=== PATIENT | female | born 2000 | race Caucasian/White ===

== ENCOUNTER 2023-06-28 18:49 | Emergency (ER) | payer MEDICAID, SELFPAY ==
[2023-06-28 18:51] VITALS: BP 137/76; PULSE 88; TEMP 36.9; O2SAT 99; BMI 38.7
--- NOTE | 2023-06-28 18:57 | ED_ITS ---
HPI - Female Genitourinary General Chief complaint: Urogenital-Female Stated complaint: green vaginal discharge Time Seen by Provider: 06/28/23 18:49 Source: patient Mode of arrival: walk-in History of Present Illness HPI Narrative: Patient is a 22-year-old female who presents to the emergency department for 4- day history of itchy green vaginal discharge. She denies fevers, vomiting, abdominal pain or flank pain. No urinary symptoms. She has had no vaginal bleeding. She is concerned that her boyfriend may have cheated on her and given her an STI. She has not had any wounds or lesions. She is not concerned for . Related Data Previous Rx's ?Medication ?Instructions ?Recorded doxycycline hyclate 100 mg tablet 100 mg PO BID 7 days #14 tabs 06/28/23 metronidazole 500 mg tablet 500 mg PO Q12H 7 days #14 tabs 06/28/23 ondansetron 4 mg disintegrating 4 mg PO Q6H PRN nausea and 06/28/23 tablet vomiting #12 tabs Allergies Allergy/AdvReac Type Severity Reaction Status Date / Time No Known Drug Allergies Allergy Verified 06/28/23 18:54 Review of Systems ROS Constitutional Denies: fever or chills Ears, nose, mouth, and throat Denies: throat pain or nasal congestion Respiratory Denies: shortness of breath Gastrointestinal Denies: abdominal pain, nausea or vomiting Genitourinary Reports: vaginal discharge; Denies: pelvic pain Integumentary/Breast Denies: rash Hematologic/Lymphatic Denies: easy bruising or easy bleeding Exam Narrative Exam Narrative: Gen.: Awake, alert, in no distress Head: Normocephalic, atraumatic ENT: Moist mucous membranes Respiratory: No respiratory distress Gastrointestinal: Abdomen is soft, nondistended and nontender to palpation : Moderate yellow/light green discharge at the cervix with no cervical motion tenderness, speculum exam performed with Carmen Valdez RN at bedside throughout the duration of the exam. No vesicles, warts or other lesions appreciated of the vagina Extremities: Moves extremities equally Psych: Normal mood and affect Neuro: No focal neuro deficit Skin: Warm, dry, intact Constitutional Vital Signs, click to edit/add: Last Vital Signs Temp 98.5 F 06/28/23 18:51 Pulse 88 06/28/23 18:51 Resp 18 06/28/23 18:51 BP 137/76 06/28/23 18:51 Pulse Ox 99 06/28/23 18:51 O2 Del Method Room Air 06/28/23 18:51 Course Vital Signs Vital signs: Vital Signs Temperature 98.5 F 06/28/23 18:51 Pulse Rate 88 06/28/23 18:51 Respiratory Rate 18 06/28/23 18:51 Blood Pressure 137/76 06/28/23 18:51 Pulse Oximetry 99 06/28/23 18:51 Oxygen Delivery Method Room Air 06/28/23 18:51 Temperature 98.5 F 06/28/23 18:51 Pulse Rate 88 06/28/23 18:51 Respiratory Rate 18 06/28/23 18:51 Blood Pressure 137/76 06/28/23 18:51 Pulse Oximetry 99 06/28/23 18:51 Oxygen Delivery Method Room Air 06/28/23 18:51 MDM - Female Genitourinary MDM Narrative Medical decision making narrative: Wet prep with trichomonas as well as pending GC and Chlamydia cultures. Patient would like to be empirically treated for STI and will be treated for trichomonas. She is given Rocephin in the emergency department and discharged home on 7 days of Flagyl per updated STI treatment guidelines as well as 7 days of doxycycline. Zofran given as needed. Patient encouraged not to drink alcohol and be fully treated for STI before she engages in sexual contact. We will contact with a positive GC/chlamydia result. Follow-up with M[employer]IC[employer] LINE OPERATOR and return to the ER if symptoms change or worsen. Medical Records Attestation: I reviewed the patient's medical records. Lab Data Attestation: I reviewed the patient's lab results. Labs: Lab Results 06/28/23 06/28/23 Range/Units 19:00 19:05 Urine Color Lt. yellow (YELLOW) Urine Clarity Clear (CLEAR) Urine pH 7.0 (5.0-9.0) Ur Specific [place] 1.020 (1.005-1.025) Urine Protein Negative (NEG/TRACE) mg/dL Urine Glucose (UA) Negative (NEGATIVE) mg/dL Urine Ketones Negative (NEGATIVE) mg/dL Urine Occult Blood Trace-i (NEGATIVE) Urine Nitrite Negative (NEGATIVE) Urine Bilirubin Negative (NEGATIVE) Urine Urobilinogen 1.0 (0.2-1.0) EU/dL Ur Leukocyte Esterase Small A (NEGATIVE) Urine RBC 5-10 A (0-2) #/HPF Urine WBC 5-10 A (NONE SEEN) #/HPF Ur Squamous Epith Cells Many A (NONE/RARE) #/LPF Urine Crystals None seen (None Seen) #/HPF Urine Bacteria Trace A (NONE SEEN) #/HPF Urine Casts None seen (NONE SEEN) #/LPF Urine Mucus None seen (NONE SEEN) Urine Trichomonas Seen A (NONE SEEN) Urine Yeast Seen A (NONE SEEN) Ur Culture Indicated? Yes Urine HCG, Qual Negative (NEGATIVE) C.trachomatis DNA (LOCO) Negative (Negative) N.gonorrhoeae DNA (LOCO) Negative (Negative) Discharge Plan Discharge Stand Alone Forms: Portal Instructions Chief Complaint: Urogenital-Female Clinical Impression: Possible exposure to STI, Trichomonas vaginitis, Cervicitis Patient Disposition: Home, Self-Care Time of Disposition Decision: 19:29 Condition: Good Prescriptions / Home Meds: New metronidazole 500 mg tablet 500 mg PO Q12H 7 Days Qty: 14 0RF ondansetron 4 mg tablet,disintegrating 4 mg PO Q6H PRN (Reason: nausea and vomiting) Qty: 12 0RF doxycycline hyclate 100 mg tablet 100 mg PO BID 7 Days Qty: 14 0RF Print Language: Korean Instructions: Sexually Transmitted Diseases (ED), Trichomoniasis (ED) Referrals: Leoncio Shine DO [Physician] - 1 week Shaikh Hernandez MD [Primary Care Provider] - 1 week Discharge Date/Time: 06/28/23 19:47
[2023-06-28 19:15] LABS: Bilirubin Urine NEGATIVE (NEGATIVE); Blood Urine TRACE-I (NEGATIVE); Clarity Urine CLEAR (CLEAR); Color Urine LT. YELLOW (YELLOW); Glucose Urine UA NEGATIVE (NEGATIVE); Ketones Urine NEGATIVE (NEGATIVE); Leukocyte Esterase Urine SMALL (NEGATIVE); Nitrite Urine NEGATIVE (NEGATIVE); Protein Urine NEGATIVE (NEG/TRACE)
[2023-06-28 19:18] LABS: Urine Microscopic Indicated YES
[2023-06-28 19:22] LABS: HCG Qualitative Urine* NEGATIVE (NEGATIVE)
[2023-06-28] MEDS: CEFTRIAXONE 500 MG, LIDOCAINE HCL/PF 1 ML IM (19:26)
[2023-06-28 19:30] LABS: Bacteria Urine TRACE #/HPF (NONE SEEN); Cast Seen? NONE SEEN #/LPF (NONE SEEN); Crystals Seen? None Seen #/HPF (None Seen); Mucus Urine NONE SEEN (NONE SEEN); Squamous Epithelial Cell Urine MANY #/LPF (NONE/RARE); Trichomonas Urine SEEN (NONE SEEN); Urine Culture Indicated YES
[2023-06-28] MEDS: FLUCONAZOLE 150 MG TABLET PO (19:41)
[2023-07-02 03:07] LABS: Neisseria gonorrhoeae, NAA Negative (Negative)
== END 2023-06-28 19:47 | disposition home or self-care (01) ==
PROVIDERS: Physician Assistant; Emergency Provider Internal Medicine; PCP Internal Medicine
DX: N72 Inflammatory disease of cervix uteri (principal); A59.01 Trichomonal vulvovaginitis; Z20.2 Contact with and (suspected) exposure to infections with a predominantly sexual mode of transmission
CPT/HCPCS: 81001; 84703; 87086; 87210; 87491; 87591; 96372; 99285

== ENCOUNTER 2023-09-07 11:20 | Emergency (ER) | payer MEDICAID, SELFPAY ==
[2023-09-07 11:26] VITALS: BP 123/76; PULSE 88; TEMP 36.7; O2SAT 98; BMI 39.1
--- NOTE | 2023-09-07 12:11 | ED.FEMALEGU1 ---
HPI - Female Genitourinary General Chief complaint: Urogenital-Female Stated complaint: PAIN WHEN URINATING Time Seen by Provider: 09/07/23 12:04 Source: patient Mode of arrival: walk-in Limitations: no limitations History of Present Illness HPI Narrative: This patient is here complaining of urinary discomfort. She was recently seen here and had a pelvic examination. At that time her endocervix showed some scant amount of green endocervical discharge and she was treated for trichomoniasis. She was also empirically treated with Rocephin and doxycycline empirically because some risk of STD exposure. At the time of her ER visit her GC and Chlamydia smears were negative. A urine culture done on that day is also negative for UTI, it shows mixed genital reji. She states that she did take her antibiotics but now has this urinary symptomatology. Her pelvic exam at that time showed no cervical motion tenderness or any other abnormalities. Related Data Allergies Allergy/AdvReac Type Severity Reaction Status Date / Time No Known Drug Allergies Allergy Verified 06/28/23 18:54 Exam Narrative Exam Narrative: Awake alert pleasant no distress. History was reviewed and her culture results noted as above. I did want to do an external genital examination make sure there is no indication of herpes and she is consented to that. With the nurse present at the bedside the external genitalia were examined and there is no indication of any type of herpetic lesions or other abnormalities. Her urinalysis today shows greater than 100 WBCs and she has urinary symptomatology so we will do a culture that urine and start her on Cipro. She was told to call us in 48 hours. If by chance there was not a UTI today, which is highly unlikely, she is to follow-up with her processing engineer. Constitutional Vital Signs, click to edit/add: Last Vital Signs Temp 98.0 F 09/07/23 11:26 Pulse 88 09/07/23 11:26 Resp 18 09/07/23 11:26 BP 123/76 09/07/23 11:26 Pulse Ox 98 09/07/23 11:26 O2 Del Method Room Air 09/07/23 11:26 Course Vital Signs Vital signs: Vital Signs Temperature 98.0 F 09/07/23 11:26 Pulse Rate 88 09/07/23 11:26 Respiratory Rate 18 09/07/23 11:26 Blood Pressure 123/76 09/07/23 11:26 Pulse Oximetry 98 09/07/23 11:26 Oxygen Delivery Method Room Air 09/07/23 11:26 Temperature 98.0 F 09/07/23 11:26 Pulse Rate 88 09/07/23 11:26 Respiratory Rate 18 09/07/23 11:26 Blood Pressure 123/76 09/07/23 11:26 Pulse Oximetry 98 09/07/23 11:26 Oxygen Delivery Method Room Air 09/07/23 11:26 MDM - Female Genitourinary Lab Data Labs: Lab Results 09/07/23 Range/Units 11:29 Urine Color Lt. yellow (YELLOW) Urine Clarity Clear (CLEAR) Urine pH 6.0 (5.0-9.0) Ur Specific [place] 1.020 (1.005-1.025) Urine Protein >=300 A (NEG/TRACE) mg/dL Urine Glucose (UA) Negative (NEGATIVE) mg/dL Urine Ketones Negative (NEGATIVE) mg/dL Urine Occult Blood Large A (NEGATIVE) Urine Nitrite Positive A (NEGATIVE) Urine Bilirubin Negative (NEGATIVE) Urine Urobilinogen 0.2 (0.2-1.0) EU/dL Ur Leukocyte Esterase Moderate A (NEGATIVE) Discharge Plan Discharge Stand Alone Forms: Portal Instructions Chief Complaint: Urogenital-Female Clinical Impression: UTI (urinary tract infection) Patient Disposition: Home, Self-Care Time of Disposition Decision: 12:58 Print Language: Azerbaijani Additional Instructions: Cipro/drink lots of extra FLOT fluids. Follow-up with a processing engineer if symptoms do not improve Referrals: Shaikh Hernandez MD [Primary Care Provider] - 1 week
[2023-09-07 12:31] LABS: Bilirubin Urine NEGATIVE (NEGATIVE); Blood Urine LARGE (NEGATIVE); Clarity Urine CLEAR (CLEAR); Color Urine LT. YELLOW (YELLOW); Glucose Urine UA NEGATIVE (NEGATIVE); Ketones Urine NEGATIVE (NEGATIVE); Leukocyte Esterase Urine MODERATE (NEGATIVE); Nitrite Urine POSITIVE (NEGATIVE); Protein Urine >=300 mg/dL (NEG/TRACE); Urobilinogen Urine 0.2 EU/dL (0.2-1.0)
[2023-09-07 12:41] LABS: Urine Microscopic Indicated YES
[2023-09-07 12:46] LABS: WBC Urine >100 #/HPF (NONE SEEN)
[2023-09-07 12:47] LABS: Bacteria Urine SMALL #/HPF (NONE SEEN); Cast Seen? NONE SEEN #/LPF (NONE SEEN); Crystals Seen? None Seen #/HPF (None Seen); Mucus Urine NONE SEEN (NONE SEEN); Squamous Epithelial Cell Urine FEW #/LPF (NONE/RARE)
[2023-09-07 13:06] VITALS: BP 107/76; PULSE 74; O2SAT 98
== END 2023-09-07 13:05 | disposition home or self-care (01) ==
PROVIDERS: Emergency Provider Emergency Medicine Emergency Medical Services; PCP Internal Medicine
DX: N39.0 Urinary tract infection, site not specified (principal)
CPT/HCPCS: 81001; 99283

== ENCOUNTER 2023-09-09 00:36 | Emergency (ER) | payer MEDICAID, SELFPAY ==
[2023-09-09 00:40] VITALS: BP 125/74; PULSE 123; TEMP 37.1; O2SAT 95; BMI 35.4
--- NOTE | 2023-09-09 01:05 | ED.GENADUL1 ---
HPI HPI - General Adult General Chief complaint: Fever Stated complaint: fever Time Seen by Provider: 09/09/23 00:56 Source: patient Mode of arrival: walk-in Limitations: no limitations History of Present Illness HPI narrative: patient states she was seen yesterday and diagnosed with UTI. Prescribed antibiotic but never picked it up. Now returns complaining of fever and vomiting. Her sides feel sore Related Data Allergies Allergy/AdvReac Type Severity Reaction Status Date / Time No Known Drug Allergies Allergy Verified 09/09/23 00:46 Opioid HPI Opioid Management Most Recent Opioid Data: Last ED Pain Assessment 09/07/23 11:46 Review of Systems ROS Status of ROS 10 or more systems reviewed and unremarkable except as noted in history and below Exam Constitutional Vital Signs, click to edit/add: Last Vital Signs Temp 98.8 F 09/09/23 00:40 Pulse 113 H 09/09/23 02:26 Resp 16 09/09/23 02:26 BP 113/66 09/09/23 02:26 Pulse Ox 97 09/09/23 02:26 O2 Del Method Room Air 09/09/23 02:26 Common normals: no apparent distress, average body habitus, oriented x3, no limitations, healthy appearing, alert and well nourished [facility] Common normals: normocephalic and head/scalp atraumatic Eye Common normals: EOMs intact bilaterally and conjunctivae normal Respiratory Common normals: normal respiratory effort, no retractions, no use of accessory muscles and clear to auscultation bilaterally Cardio Common normals: regular rate, regular rhythm, S1 normal heart sound and S2 normal heart sound GI Other: bilat CVA mild tenderness Extremity Common normals: normal to inspection and full ROM Neuro Common normals: oriented x3, CN's II-XII intact bilaterally, moves all extremities and no focal motor deficits Psych Appearance: grossly normal Course Vital Signs Vital signs: Vital Signs Temperature 98.8 F 09/09/23 00:40 Pulse Rate 123 H 09/09/23 00:40 Respiratory Rate 16 09/09/23 00:40 Blood Pressure 125/74 09/09/23 00:40 Pulse Oximetry 95 09/09/23 00:40 Oxygen Delivery Method Room Air 09/09/23 00:40 Temperature 98.8 F 09/09/23 00:40 Pulse Rate 113 H 09/09/23 02:26 Respiratory Rate 16 09/09/23 02:26 Blood Pressure 113/66 09/09/23 02:26 Pulse Oximetry 97 09/09/23 02:26 Oxygen Delivery Method Room Air 09/09/23 02:26 Medical Decision Making MDM Narrative Medical decision making narrative: patient presents with untreated UTI. Has antibiotics at pharmacy but has not picked them up. Here with flank pain. States fever at home but afebrile here. Nausea here that resolved after one dose of zofran. Patient hydrated and given dose of Rocephin and then discharged home Lab Data Labs: Lab Results 09/09/23 Range/Units 01:14 WBC 14.4 H (4.0-11.0) 10^3/uL RBC 4.03 L (4.20-5.40) 10^6/uL Hgb 12.5 (12.0-16.0) g/dL Hct 36.6 (36.0-48.0) % MCV 90.8 (81.0-99.0) fL MCH 31.0 (26.7-34.0) pg MCHC 34.2 (29.9-35.2) g/dL RDW 12.7 (11.0-15.0) % Plt Count 281 (150-450) 10^3/uL MPV 9.6 (9.5-13.5) fL Neut % (Auto) 87.6 H (43.0-75.0) % Lymph % (Auto) 5.2 L (20.5-60.0) % [place] % (Auto) 6.3 (1.7-12.0) % Eos % (Auto) 0.0 L (0.9-7.0) % Baso % (Auto) 0.1 L (0.2-2.0) % Neut # (Auto) 12.6 H (1.4-6.5) 10^3/uL Lymph # (Auto) 0.7 L (1.2-3.8) 10^3/uL [place] # (Auto) 0.9 H (0.3-0.8) 10^3/uL Eos # (Auto) 0.0 (0.0-0.7) 10^3/uL Baso # (Auto) 0.0 (0.0-0.1) 10^3/uL Abs Immat Gran (auto) 0.11 H (0.00-0.03) 10^3/uL Imm/Tot Granulo (auto) 0.8 H (0.0-0.5) % Sodium 134 L (136-145) mmol/L Potassium 3.4 L (3.5-5.1) mmol/L Chloride 101 (98-107) mmol/L Carbon Dioxide 22.8 (21.0-32.0) mmol/L Anion Gap 13.6 BUN 9.0 (7.0-18.0) mg/dL Creatinine 1.08 H (0.55-1.02) mg/dL Est GFR ( Amer) >60 (>=60) Est GFR (Non-Af Amer) >60 (>=60) BUN/Creatinine Ratio 8.3 Glucose 148 H (74-106) mg/dL Lactate 1.8 (0.4-2.0) mmol/L Calcium 8.9 (8.5-10.1) mg/dL Discharge Plan Discharge Stand Alone Forms: Portal Instructions Chief Complaint: Fever Clinical Impression: UTI (urinary tract infection) Patient Disposition: Home, Self-Care Print Language: Maltese Instructions: Acute Urinary Retention in Women (ED) Additional Instructions: follow up with your doctor in 2-3 days for recheck Referrals: Shaikh Hernandez MD [Primary Care Provider] - 1 week
[2023-09-09 01:24] LABS: Basophils Percent Auto 0.1 % (0.2-2.0); Hematocrit 36.6 % (36.0-48.0); Hemoglobin 12.5 g/dL (12.0-16.0); Immature Granulocytes Abs Auto 0.11 10^3/uL (0.00-0.03); Immature Granulocytes Pct Auto 0.8 % (0.0-0.5); Lymphocytes Absolute Auto 0.7 10^3/uL (1.2-3.8); Lymphocytes Percent Auto 5.2 % (20.5-60.0); Mean Corpuscular HGB Conc 34.2 g/dL (29.9-35.2); Mean Corpuscular Volume 90.8 fL (81.0-99.0); Mean Platelet Volume 9.6 fL (9.5-13.5); Monocytes Absolute Auto 0.9 10^3/uL (0.3-0.8); Monocytes Percent Auto 6.3 % (1.7-12.0); Neutrophils Absolute Auto 12.6 10^3/uL (1.4-6.5); Neutrophils Percent Auto 87.6 % (43.0-75.0); Platelet Count 281 10^3/uL (150-450); Red Blood Count 4.03 10^6/uL (4.20-5.40); Red Cell Distribution Width 12.7 % (11.0-15.0); White Blood Count 14.4 10^3/uL (4.0-11.0)
[2023-09-09] MEDS: 0.9 % SODIUM CHLORIDE 1,000 ML 999 ML IV (01:31)
[2023-09-09] MEDS: CEFTRIAXONE 1,000 MG in 0.9 % SODIUM CHLORIDE 50 ML 100 MG IV (01:31)
[2023-09-09 01:34] LABS: Anion Gap 13.6; BUN Creatinine Ratio 8.3; Calcium 8.9 mg/dL (8.5-10.1); Carbon Dioxide 22.8 mmol/L (21.0-32.0); Chloride 101 mmol/L (98-107); Estimated GFR (African America >60 (>=60); Estimated GFR (Non-African Ame >60 (>=60); Glucose 148 mg/dL (74-106); Potassium 3.4 mmol/L (3.5-5.1); Sodium 134 mmol/L (136-145)
[2023-09-09 01:43] LABS: Lactate/Lactic Acid 1.8 mmol/L (0.4-2.0)
[2023-09-09] MEDS: ONDANSETRON PF 4 MG/2 ML VIAL IV (01:44)
[2023-09-09 02:26] VITALS: BP 113/66; PULSE 113; O2SAT 97
== END 2023-09-09 02:42 | disposition home or self-care (01) ==
PROVIDERS: Emergency Provider Internal Medicine; PCP Internal Medicine
DX: N39.0 Urinary tract infection, site not specified (principal)
CPT/HCPCS: 36415; 80048; 83605; 85025; 96365; 96375; 99284; J0696; J2405

== ENCOUNTER 2024-04-05 20:22 | Emergency (ER) | payer MEDICAID, SELFPAY ==
[2024-04-05 20:36] VITALS: BP 137/93; PULSE 86; TEMP 37.1; O2SAT 97; BMI 34.5
[2024-04-05] MEDS: HYDROCODONE/ACET 5-325 MG TABLET 1 TAB PO (21:34)
[2024-04-05] MEDS: AMOXICILLIN/POT CLAV 875-125 MG TABLET 1 TAB PO (21:39)
--- NOTE | 2024-04-06 01:18 | ED_ITS ---
HPI - Dental/Oral General Chief complaint: Dental/Oral Stated complaint: MOUTH PAIN Time Seen by Provider: 04/05/24 21:12 Source: patient Mode of arrival: walk-in Limitations: no limitations History of Present Illness HPI Narrative: The patient is an otherwise healthy 23-year-old female who presents to the emergency department for dental pain. The patient reported that one of her front teeth is extremely painful. Pain is an 11 out of 10. Patient stated that a filling fell out of that tooth March 31. She apparently had a prior dental appointment scheduled and was able to be seen the next day. They informed her that they were unable to put a filling back in that tooth because the tooth was loose. On April 02, the tooth broke off. The patient stated she tried to call her dentist on and Saturday due to the pain and her concern to need an antibiotic. She states that she is getting some bleeding and some clots from the site still. Patient is not taking anything for the pain. The patient does smoke. Unknown what makes the pain worse. Nothing makes it better. She does not have any trouble breathing or swallowing. There is no trouble opening her mouth. She can stick her tongue out. She does not have any neck pain or stiffness. There is no pain under the tongue. She denies any fever or chills. MD Complaint: Reports tooth pain Location: Tooth # (7) Teeth map: 2 1. Severity: severe Treatment prior to arrival: none Related Data Previous Rx's ?Medication ?Instructions ?Recorded amoxicillin 875 mg-potassium 1 tab PO BID #14 tabs 04/05/24 clavulanate 125 mg tablet hydrocodone 5 mg-acetaminophen 325 1 tab PO Q8H #9 tabs 04/05/24 mg tablet Allergies Allergy/AdvReac Type Severity Reaction Status Date / Time No Known Drug Allergies Allergy Verified 04/05/24 20:43 Review of Systems 2 ROS0 Status of ROS 10 or more systems reviewed and unremark able except as noted in history and below [facility] Social History Little interest or pleasure in doing things: not at all Feeling down, depressed, or hopeless: not at all Exam Narrative Exam Narrative: Prior to examining the patient, I have washed with hospital approved and provided Antiseptic Hand Street Light Repairer and have also applied gloves.? Prior to touching the patient, I asked for consent to examine the patient.? General: Alert and oriented, well nourished, mild distress. Eye: PERRL, EOMI, normal conjunctiva. 4 mm and reactive HENT: Normocephalic, normal hearing, moist oral mucosa, no scleral icterus, tooth #7 has hyperemic gingival tissue. Tooth #7 is decayed to the gingival line. There is no evidence of active bleeding at this time. Neck: Supple, non-tender, no lymphadenopathy. Musculoskeletal: Normal range of motion and strength, no tenderness or swelling. Skin: Skin is warm, dry and pink, no rashes or lesions. Neurologic: Awake, alert, and oriented X3, CN II-XII intact. Psychiatric: Cooperative, appropriate mood and affect.? Following the conclusion of the examination, I have washed my hands thoroughly after removing examination gloves. Constitutional Vital Signs, click to edit/add: Last Vital Signs Temp 98.8 F 04/05/24 20:36 Pulse 86 04/05/24 20:36 Resp 14 04/05/24 20:36 BP 137/93 H 04/05/24 20:36 Pulse Ox 97 04/05/24 20:36 O2 Del Method Room Air 04/05/24 20:36 Course Course Hospital Course: Patient is a 23-year-old healthy female who presented to the emergency department through triage by her grandma who had driven her. Patient has evidence of dental caries and likely dental abscess given her presentation. Patient is going to be started on antibiotic therapy. We are going to give the patient Augmentin 875 mg twice daily. Patient will also be provided a prescription for [place] and instructed to also take ibuprofen as an outpatient. She should follow-up with her dentist soon as possible. I did advise the patient to stop smoking as that may inhibit her from getting surgical care if that is what is deemed to be necessary. Vital Signs Vital signs: Vital Signs Temperature 98.8 F 04/05/24 20:36 Pulse Rate 86 04/05/24 20:36 Respiratory Rate 14 04/05/24 20:36 Blood Pressure 137/93 H 04/05/24 20:36 Pulse Oximetry 97 04/05/24 20:36 Oxygen Delivery Method Room Air 04/05/24 20:36 Temperature 98.8 F 04/05/24 20:36 Pulse Rate 86 04/05/24 20:36 Respiratory Rate 14 04/05/24 20:36 Blood Pressure 137/93 H 04/05/24 20:36 Pulse Oximetry 97 04/05/24 20:36 Oxygen Delivery Method Room Air 04/05/24 20:36 MDM - Dental/Oral MDM Narrative Medical decision making narrative: In summary, the patient does not have any evidence of Cali's angina or acute necrotizing ulcerative gingivitis. I believe that the patient should rinse or brush her teeth after every eating and smoking event. The patient should take antibiotics to completion. The patient should be aggressive with seeking dental care follow-up. Differential Diagnosis Differential diagnosis: Likely gingival abscess, dental caries, toothache, dental abscess and fracture of tooth Medical Records Attestation: I reviewed the patient's medical records. Smoking Cessation Patient Acknowledges Need for Cessation: Yes Discharge Plan Discharge Chief Complaint: Dental/Oral Clinical Impression: Dental abscess Patient Disposition: Home, Self-Care Time of Disposition Decision: 21:23 Condition: Good Mode of Transportation: EMS Prescriptions / Home Meds: New amoxicillin-pot clavulanate 875-125 mg tablet 1 tab PO BID Qty: 14 0RF hydrocodone-acetaminophen 5-325 mg tablet 1 tab PO Q8H Qty: 9 0RF Print Language: Cymro Instructions: Dental Abscess (ED) Additional Instructions: Please brush her teeth or rinse her mouth out each and every time you smoke a cigarette. Try to refrain from smoking if you can. Sometimes oral surgeons or dentist will not operate on you if you are smoking at the time of surgery. Increase your water and you may want to use probiotics since you are taking an antibiotic for your gut health. Referrals: Physician,Non-Staff, [Primary Care Provider] - 1 week Discharge Date/Time: 04/05/24 21:40
== END 2024-04-05 21:40 | disposition home or self-care (01) ==
PROVIDERS: Emergency Provider Emergency Medicine
DX: K04.7 Periapical abscess without sinus (principal); F17.200 Nicotine dependence, unspecified, uncomplicated
CPT/HCPCS: 99283

== ENCOUNTER 2024-06-08 14:25 | Emergency (ER) | payer SELFPAY ==
[2024-06-08 14:40] VITALS: BP 112/87; PULSE 92; TEMP 36.9; O2SAT 99; BMI 32.9
[2024-06-08] MEDS: BENZOCAINE 30 ML, lidocaine HCL 15 ML MM (15:00)
--- NOTE | 2024-06-08 15:07 | ED_ITS ---
HPI - Dental/Oral General Chief complaint: Dental/Oral Stated complaint: DENTAL PAIN Time Seen by Provider: 06/08/24 14:42 Source: patient Mode of arrival: walk-in History of Present Illness HPI Narrative: Patient is a 23-year-old female who presents to the emergency department for evaluation of pain in tooth #18. She states this has been present for the last 3 days although she was seen in this emergency department 2 months ago for pain in the same tooth. She states she was not able to have it pulled at the dentist office due to a lapse in insurance. There has been no drainage. No fevers or vomiting. She has no concern for . After my initial interview with the patient, her family member at bedside states that the patient would like to be checked for other things . She apparently had an STI exposure and would li ke to be tested for HIV and other STDs. She states she has bumps down there Related Data Previous Rx's ?Medication ?Instructions ?Recorded hydrocodone 5 mg-acetaminophen 325 1 tab PO Q8H #9 tabs 04/05/24 mg tablet amoxicillin 500 mg capsule 500 mg PO TID 10 days #30 caps 06/08/24 doxycycline hyclate 100 mg tablet 100 mg PO BID 10 days #20 tabs 06/08/24 ketorolac 10 mg tablet 10 mg PO TID PRN pain #10 tabs 06/08/24 ondansetron 4 mg disintegrating 4 mg PO Q6H PRN nausea and 06/08/24 tablet vomiting #12 tabs Allergies Allergy/AdvReac Type Severity Reaction Status Date / Time No Known Drug Allergies Allergy Verified 04/05/24 20:43 Review of Systems ROS Constitutional Denies: fever or chills Ears, nose, mouth, and throat Denies: throat pain or nasal congestion Cardiovascular Denies: chest pain Respiratory Denies: shortness of breath or cough Gastrointestinal Denies: nausea or vomiting Musculoskeletal Denies: back pain Integumentary/Breast Denies: rash Neurological Denies: numbness in extremities or weakness in extremities Hematologic/Lymphatic Denies: easy bruising or easy bleeding PFSH PFSH Social History Little interest or pleasure in doing things: not at all Feeling down, depressed, or hopeless: not at all Exam Narrative Exam Narrative: Gen.: Awake, alert, in no distress Head: Normocephalic, atraumatic ENT: Moist mucous membranes, erosion of tooth #18 to the gumline with no visible dental abscess. No trismus or drooling. No redness or swelling under the tongue. Clear speech. Respiratory: No respiratory distress, lungs clear bilaterally Cardio: Regular rate and rhythm Gastrointestinal: Abdomen is soft, nondistended and nontender to palpation Extremities: Moves extremities equally, no injuries noted Psych: Normal mood and affect Neuro: No focal neuro deficit Skin: Warm, dry, intact Constitutional Vital Signs, click to edit/add: Last Vital Signs Temp 98.5 F 06/08/24 14:40 Pulse 92 H 06/08/24 14:40 Resp 18 06/08/24 14:40 BP 112/87 06/08/24 14:40 Pulse Ox 99 06/08/24 14:40 Course Vital Signs Vital signs: Vital Signs Temperature 98.5 F 06/08/24 14:40 Pulse Rate 92 H 06/08/24 14:40 Respiratory Rate 18 06/08/24 14:40 Blood Pressure 112/87 06/08/24 14:40 Pulse Oximetry 99 06/08/24 14:40 Temperature 98.5 F 06/08/24 14:40 Pulse Rate 92 H 06/08/24 14:40 Respiratory Rate 18 06/08/24 14:40 Blood Pressure 112/87 06/08/24 14:40 Pulse Oximetry 99 06/08/24 14:40 MDM - Dental/Oral MDM Narrative Medical decision making narrative: Pelvic examination was performed with Kim Hsieh RN at bedside throughout the duration of the exam. External genitalia is unremarkable. Cervix with yellow mucopurulent drainage. Cultures obtained. Patient has no cervical motion tenderness. There are no external lesions, vesicles or rashes noted of the genitalia. Patient was medicated with dental analgesia in the ER. She was referred to the [facility] department for further STD testing as needed and was also given a referral for local gynecology as well as dental clinics. She was made aware of the limitation of the emergency department with testing of HIV, syphilis, hepatitis, etc. She requests treatment for STD exposure and was given Rocephin and a prescription for doxycycline. Amoxicillin given for coverage of the dental pain. Patient understands that she will need to finish both courses of antibiotics, she should eat with the antibiotics and Zofran was given for home in addition to Toradol for pain. Follow-up with dental, gynecology and return to the ER if symptoms change or worsen SUPERVISED APC VISIT, PHYSICIAN ATTESTATION: Based on the medical record the care appears appropriate. ? Medical Records Attestation: I reviewed the patient's medical records. Discharge Plan Discharge Chief Complaint: Dental/Oral Clinical Impression: Toothache, Dental caries, Screen for STD (sexually transmitted disease) Patient Disposition: Home, Self-Care Time of Disposition Decision: 15:35 Condition: Good Prescriptions / Home Meds: New amoxicillin 500 mg capsule 500 mg PO TID 10 Days Qty: 30 0RF ketorolac 10 mg tablet 10 mg PO TID PRN (Reason: pain) Qty: 10 0RF ondansetron 4 mg tablet,disintegrating 4 mg PO Q6H PRN (Reason: nausea and vomiting) Qty: 12 0RF doxycycline hyclate 100 mg tablet 100 mg PO BID 10 Days Qty: 20 0RF No Action hydrocodone-acetaminophen 5-325 mg tablet 1 tab PO Q8H Qty: 9 0RF Print Language: Slovenian Instructions: Safe Sex Practices (ED), Toothache (ED) Additional Instructions: [facility] Referrals: Physician,Non-Staff, MD [Primary Care Provider] - 1 week
[2024-06-08] MEDS: CEFTRIAXONE 500 MG VIAL IM (15:50)
[2024-06-08] MEDS: LIDOCAINE HCL 1% 100 MG/10 ML MDV INJ (15:51)
[2024-06-08 15:54] VITALS: BP 126/83; PULSE 88; O2SAT 99
[2024-06-10 04:07] LABS: Neisseria gonorrhoeae, NAA Negative (Negative)
== END 2024-06-08 15:54 | disposition home or self-care (01) ==
PROVIDERS: Physician Assistant; Emergency Provider Student in an Organized Health Care Education/Training Program
DX: K08.89 Other specified disorders of teeth and supporting structures (principal); K02.9 Dental caries, unspecified; Z11.3 Encounter for screening for infections with a predominantly sexual mode of transmission
CPT/HCPCS: 87210; 87491; 87591; 96372; 99285; J0696

== ENCOUNTER 2024-09-02 10:22 | Emergency (ER) | payer MEDICAID, SELFPAY ==
--- OUTSIDE RECORDS SUMMARY | 2021-12-26 09:30 | XMS_ITS | Continuity of Care Document ---
Author Organization [facility] Address [address] [place] [address] Phone Care Team Providers Care Technician Helper Instrument Name Role Phone Rafael Browne DDS Unavailable Unavail able Allergies, Adverse Reactions, Alerts Substance Reaction Status Criticality No Known Allergies Active No Inform ation Medications Medication Instructions Dosage Effective Dates (start - stop) Status Comments Lexapro 5 mg tablet take 1 tablet by ora l route every day 5 MG - Active PreviDent 5000 Plus 1.1 % cream Place pea size on wet toothbrush and brush thoroughly. Spit excess and do not rinse. Avoid eating anything for atleast 1 hour after use. Use before bed, can be use in the morning as well. - Active Procedures Procedure Date Extract; Erupted Th/exposted Rt 022 Extract; Erupted Th/exposted Rt 022 Oral Hygiene Instruction No Charge Intraoral-periapical 1st Film 1 Bitewig-single Film Limited Oral Eval Oral Hygiene Instruction OFFICE/OUTPATIENT VISIT, EST Bitewings Four Films Prophylaxis Adult Periodic Oral Eval Estab Patient 2019 [employer] [facility] Of [place] Dis Aug Oral Hygiene Instruction OFFICE/OUTPATIENT VISIT, EST PSYCH DIAGNOSTIC EVALUATION OFFICE/OUTPATIENT VISIT, EST IMMUNIZATION ADMIN, EACH ADD HPV 9 Valent IMMUNIZATION ADMIN, EACH ADD FLU VAC NO PRSV 4 NICOLE 3 YRS+ IMMUNIZATION ADMIN HEP A VACCINE, ADULT IM OFFICE/OUTPATIENT VISIT, NEW Intraoral-complete Series (bw) 19 Panoramic Film Comp Oral Eval New/estab Patient 2018 Oral Hygiene Instruction Advance Directives Directive Yes / No Effective Date File Name No Information Encounters Encounter Description Practice Location Reason(s) For Visit Diagnoses Date Provider Providers Copied on Encounter [facility], [address] [place] [address], [id number] , [place] tel:[phone] Dental Clinic ext (chief complaint) Encounter for screening for dental disorders 2 Pavan Hall. [address] [place] [address], [id number], [place]. tel:[phone] [facility], [address] [place] [address], [id number] , [place] tel:[phone] Dental Clinic ext (chief complaint) No Information 2 Dagoberto Wells. [address] [place] [address], [id number], [place]. tel:[phone] [facility], [address] [place] [address], [id number] , [place] tel:[phone] COVID [facility] Encounter for screening for COVID-19 2 Jody Lizama. [address], [place], [id number], [place]. tel:[phone] [facility], [address] [place] [address], [id number] , [place] tel:[phone] Dental Clinic filling (chief complaint) Encounter for screening for dental disorders 1 Dagoberto Wells. [address], [place], [id number], [place]. tel:[phone] OFFICE/OUTPA TIENT VISIT, EST [facility], [address] [place] [address], [id number] , [place] tel:[phone] [facility] Cough (chief complaint) BronchitisGener alized anxiety disorder Jun-0 1 Pavlock DO Max. [address], [place], [id number], [place]. tel:[phone] [facility], [address], [place], [id number] , [place] tel: [phone] [facility] Generalized anxiety disorderPersist ent Depressive Disorder (Dysthymia) 0- 0 Misti Escobar ROCK LATHER Lety. [address], [place], [id number], [place]. tel:[phone] [facility], [address] [place] [address], [id number] , [place] tel: [phone] Dental Clinic Prophy (chief complaint) Encounter for screening for dental disorders 0 Dagoberto Wells. [address], [place], [id number], [place]. tel:[phone] OFFICE/OUTPA TIENT VISIT, [facility], [address], [place], [id number] , [place] tel: [phone] [facility] Cough (chief complaint) Bronchitis 0 Pavlock DO Max. [address], [place], [id number], [place]. tel:[phone] PSYCH DIAGNOSTIC EVALUATION [facility], [address], [place], [id number] , [place] tel: [phone] [facility] Generalized anxiety disorderPersist ent Depressive Disorder (Dysthymia) 9 Misti ROSA S ROCK LATHER Lety. [address], [place], [id number], [place]. tel:[phone] OFFICE/OUTPA TIENT VISIT, [facility], [address], [place], [id number] , [place] tel: [phone] [facility] f/u depression (chief complaint) Body mass index (BMI) 39.0-39.9, adultDepression with anxiety 9 Matias Flores. [address], [place], [id number], [place]. tel:[phone] OFFICE/OUTPA TIENT VISIT, NEW [facility], [address], [place], [id number] , [place] tel:[phone] [facility] care (chief complaint) Body mass index (BMI) 36.0-36.9, adultAcne, unspecified acne typeDepression with anxietyEstablis arvin care with new doctor, encounter for 9 Matias Flores. [address], [place], [id number], [place]. tel:[phone] [facility], [address], [place], [id number] , [place] tel:[phone] Dental Clinic dental new (chief complaint) Encounter for screening for dental disorders 9 Vishnu Bosch. [address] [place], [place], [id number], [place]. tel:[phone] Family History Family Member Type Diagnosis Age At Onset Mother Problem (finding) Diabetes mellitus Mother Problem (finding) depression Mother Problem (finding) hypertension Immunizations Vaccine Date Status Comments HPV (9-valent) administered Source: New I mmunization Record Influenza virus vaccine, quadrivalent, split virus, preservative free administered Source: New Immuniza tion Record Hep A (adult) administered Source: New Im munization Record Payers Payer name Insurance type Covered democrat ID Authoriza tion(s) D Medicaid [facility] [id number] [place] [facility] 190 [id number] Medicaid Wrap - [facility] [id number] Social History Type Description Quantity Date Captured Comments Alcohol Use Details No Caffeine Use Details No Tobacco Use Status Current non-smoker Smoking Status Never smoker tattoo Sex Female Sexual Orientation Straight or heterosexual Gender Identity Female Vital Signs Date / Time: Height Weight BMI Pulse Rate Blood Pressure Temperature Respiratory Rate Body Surface Area Head Circumference Head Circ. Percentile Wt./Yamil. Percentile BMI percentile Pulse Ox Inhaled Ox 1:48 PM 98 /min 116/78 mm[Hg] 98.90 F Chief Complaint And Reason For Visit From encounter dated '12/26/2021 13:30'. ext (chief complaint). Description: ext Reason For Referral Reason For Referral No Information Plan Of Treatment Date Type Action Status Goal PRAPARE ASSESSMENT. Due on O ct due Goal RLP. Due on due Goal Tdap. Due on due Goal Depression screening. Due on due Goal Influenza vaccine. Due on Oc t due Goal PAP. Due on due Goal Dietary management education , guidance, and counseling completed Goal Dietary management education , guidance, and counseling completed History Of Present Illness Encounter Date Complaint History Of Prese nt Illness ext ext ext ext filling continue with tr eatment Cough Onset: sudden. T he patient describes the cough as hacking and productive (of green sputum). The problem has become gradually worse. Context: smoke exposure. Symptoms are aggravated by exercise and lying down. There are no relieving factors. Associated symptoms include cough, fatigue, hoarseness, nasal congestion, post-nasal drainage, rhinitis and sore throat. Pertinent negatives include chills, dyspnea, dyspnea on exertion, fever, heartburn, sinus pressure and wheezing. Additional information: Pt also states she restarted her depression medication. Prophy prophy Cough Onset: sudden. S everity: mild-moderate. The patient describes the cough as dry and persistent. It occurs persistently. The problem has not changed. Context: smoke exposure. Symptoms are aggravated by lying down. There are no relieving factors. Associated symptoms include cough. Pertinent negatives include chills, dyspnea on exertion, epistaxis, fatigue, fever, heartburn, hemoptysis, hoarseness, nasal congestion, night sweats, pleuritic pain, post-nasal drainage, rhinitis, rhinorrhea, sinus pressure, sore throat, weight loss and wheezing. Additional information: Pt states she has had the cough for 3 weeks and it is not getting better and her mom is worried because she has a young child. f/u depression Pt here to f/u f or depression. Pt states that she's having a hard time remembering to take her medication. Pt discussed setting an alarm. Pt states she does feel better when she remembers to take her medication. 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 Pt inquiring if there is a higher dose of Minocycline. Pt's mother states that she was on a higher dose previously. No other complaints at this time. Codi Wright, RNNoted above. Ana est care Pt delivered . Would like to be put back on Clindamycin for acne. Pt states that after delivery her depression felt worse with increasing anxiety. PHQ: moderate depression. Pt has gone to counseling in the past and doesn't feel it's necessary right now. Pt was on Zoloft previously and did not like it. Pt was inquiring if she could try a different medication. Pt is not currently. No other complaints at this time. Codi Wright, RNNoted above. Patient does not feel that zoloft worked. She mentions family history of bipolar. Ana dental new dental new Functional Status Date Functional Assessmen t No Information Instructions Date Instruction Additional Infor mation Dietary management e ducation, guidance, and counseling Related to Body mass index (BMI) 39.0-39.9, adult Giving encouragement to exercise Related to Body mass index (BMI) 39.0-39.9, adult Dietary management e ducation, guidance, and counseling Related to Body mass index (BMI) 36.0-36.9, adult Giving encouragement to exercise Related to Body mass index (BMI) 36.0-36.9, adult Assessments Type Assessment Date No Information Patient Care Teams Name Effective Dates (start - stop) Status Members No Information
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
--- OUTSIDE RECORDS SUMMARY | 2024-09-02 10:28 | XMS_ITS | Clinical Summary ---
Author Organization [facility] Healthcare Address [address] [place] [address] Care Team Providers Care Digital Data Analyst Name Role Phone Unallocated, [facility] Provider MD Primary Care Provi luis Allergies No known active allergies Medications Levonorgestrel (Mirena, 52 MG,) 20 MCG/DAY intrauterine device as directed Intrauterine Active escitalopram (Lexapro) 20 MG tabletIndication s:Anxiety Take 1 tablet (20 mg) by mouth Daily 30 tablet 5 Active Encounters Date Type Department Care Team Description 08/20/2024 11:20 AM EDT Office Visit [facility] [address] [facility] [address] [place] [phone] Noble Haro DO Anxiety (Primary Dx) 08/20/2024 Bamboo flowsheet [facility] [address] [facility] [address] [place] [phone] Noble Haro DO 08/20/2024 Travel 08/19/2024 Travel from Last 3 Months Family History Medical History Relation Name Comments Diabetes Father Hypertension Father Diabetes Maternal Grandfather Breast cancer Maternal Grandmother Diabetes Mother Relation Name Status Comments Father Alive Maternal Grandfather Maternal Grandmother Mother Alive Sister 2 Social History Tobacco Use Types Packs/Day Years [...] How often do you attend chur or mormonism services? More than 4 times per year 08/19/2024 Do you belong to any clubs o r organizations such as sabianism groups, unions, fraternal or athletic groups, or [...] Recorded Patient Health Questionnaire-2 Score 0 08/20/2024 [facility] Questionnaire Answer Date Recorded [...] any time in the past 12 m [facility], were you homeless or living in a senior living (including now)? No 08/19/2024 Comments Unknown Sex and Gender Information Value Date Recorded Sex Assigned at Not on file Legal Sex Female 7:18 PM EDT Gender Identity Not on file Sexual Orientation Not on file Last Filed Vital Signs Vital Sign Reading [...] Mass Index 30.29 08/20/2024 11:30 AM EDT Plan of Treatment Upcoming Encounters Date Type Department Care Team (Late st Contact Info) Description 09/16/2024 1:00 PM EDT Office Visit [facility] [address] [place] [address] [place] [phone] Noble Haro DO [address] [facility] [address] [place] [address] Health Maintenance Due Date Last Done Comments Influenza Vaccine (Season Ended) 2024 12/17/2018, 04/18/2016, 05/22/[address] [place] [address] [facility] [employer] [place] Care Teams Digital Data Analyst Relationship Specialty Start Date End Date Unallocated, Meka Hoffman MD [address] [place] [address] PCP - General Family Medicine 04/06/24
--- OUTSIDE RECORDS SUMMARY | 2024-09-02 10:28 | XMS_ITS | Encounter Summary ---
Author Organization [facility] Address [address] [place] [address] Care Team Providers Care Polygraph Examiner Name Role Phone Unallocated, Esdras Provider Primary Care Provi luis Encounter Details Date Type Department Care Team (Latest Contact Info) Description 08/20/2024 Travel Social History Tobacco Use Types Packs/Day Years Used Date Smoking Tobacco: Never Passive Smoke Exposure: Never Smokeless Tobacco: Never Alcohol Use Standard Drinks/Week Comments Never 0 [...] 08/19/2024 How often do you attend chur ch or jainism services? More than 4 times per year 08/19/2024 Do you belong to any clubs o r organizations such as jainism groups, unions, fraternal or athletic groups, or [...] Recorded Patient Health Questionnaire-2 Score 0 08/20/2024 [facility] - Occupational Stress [...] any time in the past 12 m [facility], were you homeless or living in a fdc (including now)? No 08/19/2024 Comments Unknown Sex and Gender Information Value Date Recorded Sex Assigned at Not on file Legal Sex Female 7:18 PM EDT Gender Identity Not on file Sexual Orientation Not on file documented as of this encounter Functional Status * Over the past 2 weeks, how often have you been bothered by any of the following problems? Question Answer Date of Assessment Author Little interest or pleasure in doing things Not at all 08/20/2024 11:30 AM EDT Carey Hopper RN Feeling down, depressed, or hopeless Not at all 08/20/2024 11:30 AM EDT Dennis Hopper RN Patient Health Questionnaire-2 Score 0 08/20/2024 11:30 AM EDT Luz Hopper RN documented as of this encounter Plan of Treatment Upcoming Encounters Date Type Department Care Team (Late st Contact Info) Description 09/16/2024 1:00 PM EDT Office Visit [facility] [address] [facility] [address] [place] [address] Noble Haro DO [address] [facility] [address] [place] [address] documented as of this encounter Visit Diagnoses Not on filedocumented in this encounter Care Teams Polygraph Examiner Relationship Specialty Start Date End Date Unallocated, Noms Yasmin, [address] [place] [address] PCP - General Family Medicine 04/06/24 documented as of this encounter
--- OUTSIDE RECORDS SUMMARY | 2024-09-02 10:28 | XMS_ITS | Encounter Summary ---
Author Organization [facility] Address [address] [place] [address] Care Team Providers Care Laser Machine Operator Name Role Phone Unallocated, Noms Provider Primary Care Provi luis Encounter Details Date Type Department Care Team (Latest Contact Info) Description 08/19/2024 Travel Social History Tobacco Use Types Packs/Day Years Used Date Smoking Tobacco: Never Alcohol Use Standard Drinks/Week Comments [...] often do you attend chur ch or anglican services? More than 4 times per year 08/19/2024 Do you belong to any clubs o r organizations such as alevism groups, unions, fraternal or athletic groups, or [...] Recorded Patient Health Questionnaire-2 Score 0 08/20/2024 [facility] - Occupational Stress [...] any time in the past 12 m [facility], were you homeless or living in a prison (including now)? No 08/19/2024 Comments Unknown Sex and Gender Information Value Date Recorded Sex Assigned at Not on file Legal Sex Female 7:18 PM EDT Gender Identity Not on file Sexual Orientation Not on file documented as of this encounter Functional Status * Audit-C Score Answer Date of Assessment Author 1 08/19/2024 11:29 AM EDT Catrinat, Generic * Q1: How often do you have a drink containing alcohol? Answer Date of Assessment Author Monthly or less 08/19/2024 11:29 AM EDT Mycwilbert, Generic * Q2: How many drinks containing alcohol do you have on a typical day when you are drinking? Answer Date of Assessment Author 1 or 2 08/19/2024 11:29 AM EDT Mychart, Generic * Q3: How often do you have six or more drinks on one occasion? Answer Date of Assessment Author Never 08/19/2024 11:29 AM EDT Mycwilbert, Generic documented as of this encounter Plan of Treatment Upcoming Encounters Date Type Department Care Team (Late st Contact Info) Description 09/16/2024 1:00 PM EDT Office Visit [facility] [address] [place] [address] Noble Haro DO [address] [place] [address] documented as of this encounter Visit Diagnoses Not on filedocumented in this encounter Care Teams Laser Machine Operator Relationship Specialty Start Date End Date Unallocated, Noms Yasmin, [address] [place] [address] PCP - General Family Medicine 04/06/24 documented as of this encounter
--- OUTSIDE RECORDS SUMMARY | 2024-09-02 10:28 | XMS_ITS | Encounter Summary ---
Author Organization [facility] Address [address] [facility] [place] [address] Care Team Providers Care Data Processing Control Clerk Name Role Phone Shaikh GEORGIE Hernandez Primary Care Provider Unallocated, Noms Provider Primary Care Provi luis Encounter Details Date Type Department Care Team (Late st Contact Info) Description 09/12/2023 [facility]phone [facility] [address] [place] [address] Shaikh Hernandez MD [address] [place] [id number] Social History Tobacco Use Types Packs/Day Years Used Date Smoking Tobacco: Never Alcohol Use Standard Drinks/Week Comments Never 0 (1 standard drink = 0.6 oz pure alcohol) Caffeine intake: 6 cans of pop daily Comments Unknown Sex and Gender Information Value Date Recorded Sex Assigned at Not on file Legal Sex Female 7:18 PM EDT Gender Identity Not on file Sexual Orientation Not on file documented as of this encounter Plan of Treatment Upcoming Encounters Date Type Department Care Team (Late st Contact Info) Description 09/16/2024 1:00 PM EDT Office Visit [facility] [address] [place] [phone] Noble Haro DO [address] [place] [address] documented as of this encounter Visit Diagnoses Not on filedocumented in this encounter Care Teams Data Processing Control Clerk Relationship Specialty Start Date End Date FawShaikh chin MD PCP - General Internal Medicine 01/01/23 04/05/24 Unallocated, Noms Provider, [address] [id number] PCP - General Family Medicine 04/06/24 documented as of this encounter
--- OUTSIDE RECORDS SUMMARY | 2024-09-02 10:28 | XMS_ITS | Clinical Summary ---
Demographics Address [facility] [address] [place] [address] Home Phone Preferred Language ENG Marital Status Single Scientology Affiliation Unknown Race Unknown Ethnic Group Unknown Author Organization [facility] Address [address] [place], [place] [id number] Care Team Providers Care Orchard Worker Name Role Phone Unavailable Primary Care Provider Unavailabl e Social History Tobacco Use Types Packs/Day Years Used Date Smoking Tobacco: Never Assessed Comments Unknown Sex and Gender Information Value Date Recorded Sex Assigned at Not on file Legal Sex Female 7:32 AM EST Gender Identity Not on file Sexual Orientation Not on file Plan of Treatment Not on file
[2024-09-02 10:35] VITALS: BP 111/78; PULSE 70; TEMP 36.9; O2SAT 98; BMI 30.8
--- NOTE | 2024-09-02 10:37 | XR_ITS ---
The [address] [address] Patient Name: KANA MOLINA MRN: [id number] date: 2000 Sex: F Assigned Patient Location: ER Current Patient Location: ER Accession/Order Number: [id number] Exam Date: 09/02/2024 11:11 Report Date: 09/02/2024 11:12 At the request of: FREIDA VOGEL MD Procedure: XR shoulder RT min 2V RIGHT SHOULDER - 3 views CLINICAL HISTORY: Patient fell in the shower this morning injuring the right shoulder. Decreased range of motion. COMPARISON: None AP, Y and Grashey views were obtained. There is no evidence of fracture or dislocation. There are no significant soft tissue abnormalities. XR/XR shoulder RT min 2V IMPRESSION: NO ACUTE BONY INJURY. Impression dictated by: Lali Childers M.D. 09/02/2024 11:12 AM Dictation Location: [place] [address] Electronically authenticated by: [id number] Y Date: 09/02/2024 11:12
--- OUTSIDE RECORDS SUMMARY | 2024-09-02 10:39 | XMS_ITS | CCD ---
Author Organization [facility] Care Team Providers Care Alarm Adjuster Name Role Phone Lauren Castaneda Unavailable DION ., TAMMI Admitting Unavailable DION ., TAMMI Consulting Unavailable DION ., TAMMI Attending Unavailable FAWWAD, RODRIGUEZ H Primary Care Unavailable FAWWAD, RODRIGUEZ H Primary Care Unavailable SHANNENCHMARIO .ROSARIO Consulting Unavaillaurie e DION ., TAMMI Admitting Unavailable DION ., TAMMI Attending Unavailable FAWWAD, RODRIGUEZ H Primary Care Unavailable LUI ., DR MENSAH Admitting Unavailable HAY ., DR MENSAH Consulting Unavailable HAY ., DR MENSAH Attending Unavailable FAWWAD, RODRIGUEZ H Primary Care Unavailable MARCELA ., DR WHEATLEY Admitting Unavailable MARCELA ., DR WHEATLEY Consulting Unavailable MARCELA ., DR WHEATLEY Attending Unavailable FAWWAD, RODRIGUEZ H Primary Care Unavailable FAWWAD, RODRIGUEZ H Consulting Unavailable FAWWAD, RODRIGUEZ H Attending Unavailable FAWWAD, RODRIGUEZ H Admitting Unavailable Linda Reyes Unavailable Sariah Kim Unavailable NOBLE HARO Attending Unavailable Unallocated , Memos Provider Primary Care Provi luis Medications Current Medications Medication Drug Class(es) Dates Sig (Normalized) Sig (Original) dextromethorphan hydrobromide 15 mg / guaiFENesin 400 mg / pseudoephedrine hydrochloride 60 mg oral tablet (1 source) alpha-Adrenergic Agonist, Uncompetitive K-lceqmb-L-asparta te Receptor Antagonist, Sigma-1 Agonist Start: 03-02-2023 take 4 tablets by mouth every twenty-four hours as needed Capmist DM 60-15-400 MG as needed Orally every 4-6 hours as needed, max 4 tablets in 24 hours for 5 days Feb, Active levonorgestrel 0.366387 mg/hr intrauterine system (1 source) Progestin, Progestin-containi ng Intrauterine Device Levonorgestrel (Mirena, 52 MG,) 20 MCG/DAY intrauterine device as directed Intrauterine Active Penicillin (1 source) Start: 11-05-2022 take 1 tablet by mouth four times daily Penicillin VK 500mg 500mg 1 tab(s) Oral 4 times a day for 10 days Oct, Active Completed/Discontinued Medications Medication Drug Class(es) Dates Sig (Normalized) Sig (Original) amoxicillin 875 mg oral tablet (2 sources) Penicillin-class Antibacterial Start: 03-12-2022 take 1 tablet by mouth every twelve hours Amoxicillin 875 MG 1 tablet Orally every 12 hrs for 7 days Feb, Not-Taking cefTRIAXone (3 sources) Cephalosporin Antibacterial Start: 04-30-2017 Rocephin 500 mg Apr, 500 mg Ketorolac (3 sources) Nonsteroidal Anti-inflammatory Drug, Cyclooxygenase Inhibitor Start: 04-30-2017 Toradol per 15 mg Apr, 30 mg Sertraline (2 sources) Serotonin Reuptake Inhibitor Zoloft Not-Taking Triamcinolone (3 sources) Corticosteroid Start: 04-30-2017 KENALOG - 10 mg Apr, 40 mg Problems Active Problems Problem Classification Problem Date Documented Date Episodic/Chronic Anxiety disorders (1 source) Generalized anxiety disorder; Translations: [GENERALIZED ANXIETY DISORDER] Onset: 09-13-2021 Chronic Contraceptive and procreative management (1 source) Presence of (intrauterine) contraceptive device; Translations: [PRESENCE IU CONTRACEPT DEVICE] Onset: 07-16-2022 Episodic Disorders of teeth and jaw (1 source) Dental caries, unspecified Episodic Genitourinary symptoms and ill-defined conditions (4 sources) Dysuria; Translations: [Personal history of urinary (tract) infections] Onset: 03-28-2022 Episodic Inflammatory diseases of female pelvic organs (1 source) Inflammatory disease of cervix uteri; Translations: [INFLAMMATORY DISEASE CERVIX UTERI] Onset: 07-16-2022 Episodic Mood disorders (4 sources) Bipolar disorder, unspecified; Translations: [BIPOLAR DISORDER UNSPECIFIED] Onset: 09-07-2021 Chronic Other upper respiratory infections (5 sources) Acute pharyngitis, unspecified; Translations: [Streptococcal pharyngitis] Episodic Substance-related disorders (1 source) Nicotine dependence, cigarettes, uncomplicated; Translations: [NICOTINE DEPEND CIGARETTES UNCOMP] Onset: 03-28-2022 Chronic Unclassified (2 sources) COUGH, UNSPECIFIED; Translations: [COUGH, UNSPECIFIED] Onset: 02-15-2022 Unclassified (1 source) CONTACT W/AND (SUSP) EXPOS COVID-19; Translations: [CONTACT W/AND (SUSP) EXPOS COVID-19] Onset: 02-15-2022 Past or Other Problems Problem Classification Problem Date Documented Da te Episodic/Chronic E Codes: Natural/environment (1 source) Bitten or stung by nonvenomous insect and other nonvenomous arthropods, initial encounter; Translations: [BITTEN NONVENOM INSCT OTH ARTH INIT] Onset: 03-28-2022 Episodic Influenza (1 source) Influenza due to other identified influenza virus with other respiratory manifestations; Translations: [FLU D/T OTH ID FLU VIR OTH RSP MANF] Onset: 02-15-2022 Episodic Other screening for suspected conditions (not mental disorders or infectious disease) (2 sources) Encounter for screening for diabetes mellitus; Translations: [Encounter for screening for lipoid disorders] Onset: 09-13-2021 Episodic Other skin disorders (4 sources) Rash and other nonspecific skin eruption; Translations: [RASH OTH NONSPECIFIC SKIN ERUPTION] Onset: 03-27-2022 Episodic Skin and subcutaneous tissue infections (4 sources) Furuncle, unspecified; Translations: [FURUNCLE UNSPECIFIED] Onset: 02-19-2022 Episodic Superficial injury; contusion (7 sources) Insect bite (nonvenomous) of left shoulder, initial encounter; Translations: [Insect bite (nonvenomous) of right shoulder, initial encounter] Onset: 03-28-2022 Episodic Unclassified (1 source) Contact with and (suspected) exposure to covid-19 Z20.822 Unclassified (1 source) COUGH, UNSPECIFIED; Translations: [COUGH, UNSPECIFIED] Onset: 02-13-2022 Results Test Name Value Interpretation Reference Range Facility COVID/FLU RT-PCRon SARS-CoV-2 (COVID-19) RNA LOCO+probe Ql (Unsp spec) Negative [employer] Other COVID/FLU RT-PCR Negative [facility] [employer] Other [facility] 03-02-2023 S. pyogenes Org specific cx Ql (Throat) Negative [place] [facility] Other [facility] [place] [facility] Other CHLAMYDIA , NISSERIA, VAGINA LIS NAAon 07-16-2022 Chlamydia by LOCO WRGSWB Normal [facility] Comment on above: Result Comment: Test not performed. Collection container received with incorrect swab or not in liquid medium. Sepcimen Required:Aptima swab with collection swab Apecimen Received:Aptima swab with cleaning swab Contacted Sariah Young at your facility on 07/16/2022 Performed at: =G Performed By: #### C TVNGNA #### [facility] [address] [address] [address] Zachary Roque Gonococcus by LOCO TNP [facility] Comment on above: Result Comment: Test not performed Performed at: =G Performed By: #### C TVNGNA #### [facility] [address] [address] [address] Zachary Roque [facility] Comment on above: Result Comment: Perf ormed at: CB Performed By: #### C TVNGNA #### [facility] [address] [address] [address] Zachary Roque Trich vag by LOCO TNP [facility] Comment on above: Result Comment: Test not performed Performed at: =G Performed By: #### C TVNGNA #### [facility] [address] [address] [address] Zachary Roque CULTURE URINEon 07-14-2022 CULTURE URINE Isolate 1 Escherichia coli >100,000 cfu/mL of ORGANISM 1 Escherichia coli ANTIBIOTIC M.I.C RX STATUS Ampicillin >=32 R F Ampicillin/Sulbacta m >=32 R F Piperacillin/Tazoba ctam <=4 S F Cefazolin 8 R F Ceftazidime <=1 R F Ceftriaxone <=1 R F Ertapenem <=0.5 S F Imipenem <=0.25 S F Amikacin <=2 S F Gentamicin >=16 R F Tobramycin 8 I F Ciprofloxacin <=0.25 S F Levofloxacin <=0.12 S F Nitrofurantoin <=16 S F Trimethoprim/Sulfam ethoxazole >=320 R F Normal [facility] Comment on above: Performed By: #### U RCX #### [facility] [address] [place] [address] Dr. Zachary Roque ER URINE PROFILEon 3 Bilirubin Ql (U) Negative Normal NEGATIVE [facility] Comment on above: Performed By: #### I NFLUAB #### [facility] [address] [place] [address] Dr. Zachary Roque Clarity (U) CLEAR Normal CLEAR [facility] Comment on above: Performed By: #### I NFLUAB #### [facility] [address] [place] [address] Dr. Zachary Roque Color (U) LT. YELLOW Normal YELLOW [facility] Comment on above: Performed By: #### I NFLUAB #### [facility] [address] [place] [address] Dr. Zachary Roque ERUELHAM A micrscopic examination will be performed if indicated. Normal [facility] Comment on above: Performed By: #### I NFLUAB #### [facility] [address] [place] [address] Dr. Zachary Roque Glucose Ql (U) Negative Normal NEGATIVE [facility] Comment on above: Performed By: #### I NFLUAB #### [facility] [address] [place] [address] Dr. Zachary Roque Hemoglobin Ql (U) TRACE-INTACT Abnormal NEGATIVE [facility] Comment on above: Performed By: #### I NFLUAB #### [facility] [address] [place] [address] Dr. Zachary Roque Ketones Ql (U) Negative Normal NEGATIVE [facility] Comment on above: Performed By: #### I NFLUAB #### [facility] [address] [place] [address] Dr. Zachary Roque LEUKOCYTES SMALL Abnormal NEGATIVE [facility] Comment on above: Performed By: #### I NFLUAB #### [facility] [address] [place] [address] Dr. Zachary Roque Nitrite Ql (U) Negative Normal NEGATIVE [facility] Comment on above: Performed By: #### I NFLUAB #### [facility] [address] [place] [address] Dr. Zachary Roque pH (U) 5.5 [pH] Normal 5-9 [facility] Comment on above: Performed By: #### I NFLUAB #### [facility] [address] [place] [address] Dr. Zachary Roque SPEC GRAVITY >=1.030 Abnormal 1.005-<=1.[address] [facility] Comment on above: Performed By: #### I NFLUAB #### [facility] [address] [place] [address] Dr. Zachary Roque UA PROTEIN Negative Normal NEGATIVE/ TRACE [facility] Comment on above: Performed By: #### I NFLUAB #### [facility] [address] [place] [address] Dr. Zachary Roque UR MICRO IND INDICATED Normal [facility] Comment on above: Performed By: #### I NFLUAB #### [facility] [address] [place] [address] Dr. Zachary Roque Urobilinogen Qn (U) 0.2 {Erica'U}/dL Normal 0.2 - 1. 0 [facility] Comment on above: Performed By: #### I NFLUAB #### [facility] [address] [place] [address] Dr. Zachary Roque URon 07-12-2022 , QUAL Negative Normal NEGATIVE [facility] Comment on above: Performed By: #### I NFLUAB #### [facility] [address] [place] [address] Dr. Zachary Roque URINE MICROSCOPIC ONLYon BACTERIA TRACE Abnormal NONE SEEN [facility] Comment on above: Performed By: #### I NFLUAB #### [facility] [address] [place] [address] Dr. Zachary Roque Bacteria identified Cx Nom (U) INDICATED Normal [facility] Comment on above: Performed By: #### I NFLUAB #### [facility] [address] [place] [address] Dr. Zachary Roque CAST NONE SEEN Normal NONE SEEN [facility] Comment on above: Performed By: #### I NFLUAB #### [facility] [address] [place] [address] Dr. Zachary Roque Crystals LM Nom (Urine sed) NONE SEEN Normal NONE SEEN [facility] Comment on above: Performed By: #### I NFLUAB #### [facility] [address] [place] [address] Dr. Zachary Roque Epithelial cells LM Ql (Urine sed) FEW Abnormal NONE SEEN /RARE [facility] Comment on above: Performed By: #### I NFLUAB #### [facility] [address] [place] [address] Dr. Zachary Roque MUCOUS TRACE Abnormal NONE SEEN [facility] Comment on above: Performed By: #### I NFLUAB #### [facility] [address] [place] [address] Dr. Zachary Roque RBC 2-5 Abnormal 0-[address] [facility] Comment on above: Performed By: #### I NFLUAB #### [facility] [address] [place] [address] Dr. Zachary Roque WBC 5-10 Abnormal NONE SEEN [facility] Comment on above: Performed By: #### I NFLUAB #### [facility] [address] [place] [address] Dr. Zachary Roque COVID/FLU/RSV RT-PCRon 03-13 SARS-CoV-2 (COVID-19) RNA LOCO+probe Ql (Unsp spec) Negative [facility] [employer] Other COVID/FLU/RSV RT-PCR Negative [place] [facility] Other [facility] 03-12-2022 S. pyogenes Org specific cx Ql (Throat) Positive [employer] Other Quick Strep [employer] Other CULTURE WOUNDon 02-23-2022 CULTURE WOUND Isolate 1 Enterococcus hirae Light growth of ORGANISM 1 Enterococcus hirae ANTIBIOTIC M.I.C RX STATUS Beta-Lactamase Neg NEG F Benzylpenicillin 0.25 S F Ampicillin <=2 S F Gentamicin High Level (synergy) SYN-S S F Streptomycin High Level (synergy) SYN-S S F Quinupristin/Dalfop ristin 1 S F Linezolid 2 S F Vancomycin <=0.5 S F Normal [facility] Comment on above: Performed By: #### W OUNDCX #### [facility] [address] [place] [address] Dr. Zachary Roque Covid-19 PCR ([facility])on 01-17 SARS-CoV-2 (COVID-19) RNA LOCO+probe Ql (Unsp spec) Not detected Normal NOT DETECTED [facility] Comment on above: Result Comment: When diagnostic testing is negative, the possibility of a false negative should be considered in the context of a patient's recent exposures and the presence of clinical signs and symptoms consistent with SARS-CoV-2. This test is not yet approved or cleared by the [place] FDA. When there are no FDA-approved or cleared tests available, and other criteria are met, FDA can make tests available under an emergency access mechanism called an Emergency Use Authorization (EUA). The EUA for this test is supported by the [place] of Health and Human Service's declaration that circumstances exist to justify the emergency use of in vitro diagnostics for the detection and/or diagnosis of the virus that causes COVID-19. This EUA will remain in effect for the duration of the COVID-19 declaration justifying emergency of IVDs, unless it is terminated or revoked by the FDA (after which the test may no longer be used). Performed By: #### C VDTBH #### [facility] [address] [place] [address] Dr. Zachary Roque INFLUENZA A AND B AGon 02-13 INFLUBNEGH SEE BELOW Normal [facility] Comment on above: Result Comment: Nega tive for Flu B protein antigen. Infection due to Flu B cannot be ruled out. Flu B antigen in the sample may be below the detection limit of the test. Performed By: #### I NFLUAB #### [facility] [address] [place] [address] Dr. Zachary Roque INFLUENZA A AG Positive Abnormal NEGATIVE SEE COMMENT [facility] Comment on above: Performed By: #### I NFLUAB #### [facility] [address] [place] [address] Dr. Zachary Roque INFLUENZA B AG Negative Normal NEGATIVE SEE COMMENT [facility] Comment on above: Performed By: #### I NFLUAB #### [facility] [address] [place] [address] Dr. Zachary Roque [facility] SEE BELOW Normal [facility] Comment on above: Result Comment: NOTE : Live attenuated influenzae vaccine viruses can cause a positive result for a rapid influenza diagnostic test if administered up to 7 days prior to rapid testing. Performed By: #### I NFLUAB #### [facility] [address] [place] [address] Dr. Zachary Roque INTERNAL CONTROLS Within Normal Limits Normal Within Normal Limits [facility] Comment on above: Performed By: #### I NFLUAB #### [facility] [address] [place] [address] Dr. Zachary Roque CBC AUTO DIFFon 09-07-2021 BASO # 0.0 103/ul Normal 0.0-0.1 [facility] Comment on above: Performed By: #### C BC #### [facility] [address] [place] [address] Dr. Zachary Roque Basophils/100 WBC (Bld) 0.5 % Normal 0.2-2.[address] [facility] Comment on above: Performed By: #### C BC #### [facility] [address] [place] [address] Dr. Zachary Roque EO # 0.1 103/ul Normal 0.0-0.[address] [facility] Comment on above: Performed By: #### C BC #### [facility] [address] [place] [address] Dr. Zachary Roque Eosinophils/100 WBC (Bld) 0.9 % Normal 0.9-7.0 [facility] Comment on above: Performed By: #### C BC #### [facility] [address] [place] [address] Dr. Zachary Roque Erythrocyte distribution width (RBC) [Ratio] 13.3 % Normal 11.0-15.0 [facility] Comment on above: Performed By: #### C BC #### [facility] [address] [place] [address] Dr. Zachary Roque Hematocrit (Bld) [Volume fraction] 42.5 % Normal 36.0-48.0 [facility] Comment on above: Performed By: #### C BC #### [facility] [address] [place] [address] Dr. Zachary Roque Hemoglobin (Bld) [Mass/Vol] 13.7 g/dL Normal 12.0-16.0 [facility] Comment on above: Performed By: #### C BC #### [facility] [address] [place] [address] Dr. Zachary Roque IG # 0.06 10e3/ul Critically high 0.00-0.03 [facility] Comment on above: Performed By: #### C BC #### [facility] [address] [place] [address] Dr. Zachary Roque IG % 0.8 % Critically high 0.0-0.5 [facility] Comment on above: Performed By: #### C BC #### [facility] [address] [place] [address] Dr. Zachary Roque LYMPH # 1.9 103/ul Normal 1.2-3.[address] [facility] Comment on above: Performed By: #### C BC #### [facility] [address] [place] [address] Dr. Zachary Roque Lymphocytes/100 WBC (Bld) 24.2 % Normal 20.5-60.0 [facility] Comment on above: Performed By: #### C BC #### [facility] [address] [place] [address] Dr. Zachary Roque MANUAL DIFF REQ NO Normal [facility] Comment on above: Performed By: #### C BC #### [facility] [address] [place] [address] Dr. Zachary Roque MCH (RBC) [Entitic mass] 29.2 pg Normal 26.7-34.0 [facility] Comment on above: Performed By: #### C BC #### [facility] [address] [place] [address] Dr. Zachary Roque MCHC (RBC) [Mass/Vol] 32.2 g/dL Normal 29.9-35.2 [facility] Comment on above: Performed By: #### C BC #### [facility] [address] [place] [address] Dr. Zachary Roque MCV (RBC) [Entitic vol] 90.6 fL Normal 81.0-99.0 [facility] Comment on above: Performed By: #### C BC #### [facility] [address] [place] [address] Dr. Zachary Roque MONO # 0.5 103/ul Normal 0.3-0.8 [facility] Comment on above: Performed By: #### C BC #### [facility] [address] [place] [address] Dr. Zachary Roque Monocytes/100 WBC (Bld) 6.7 % Normal 1.7-12.0 [facility] Comment on above: Performed By: #### C BC #### [facility] [address] [place] [address] Dr. Zachary Roque NEUT # 5.3 103/ul Normal 1.4-6.[address] [facility] Comment on above: Performed By: #### C BC #### [facility] [address] [place] [address] Dr. Zachary Roque Neutrophils/100 WBC (Bld) 66.9 % Normal 43.0-75.0 [facility] Comment on above: Performed By: #### C BC #### [facility] [address] [place] [address] Dr. Zachary Roque Platelet mean volume (Bld) [Entitic vol] 9.7 fL Normal 9.5-13.5 [facility] Comment on above: Performed By: #### C BC #### [facility] [address] [place] [address] Dr. Zachary Roque PLT 327 103/ul Normal 150-450 [facility] Comment on above: Performed By: #### C BC #### [facility] [address] [place] [address] Dr. Zachary Roque RBC 4.69 106/ul Normal 4.20-5.40 [facility] Comment on above: Performed By: #### C BC #### [facility] [address] [place] [address] Dr. Zachary Roque WBC 7.9 103/ul Normal 4.0-11.0 [facility] Comment on above: Performed By: #### C BC #### [facility] [address] [place] [address] Dr. Zachary Roque GLYCOHEMOGLOBIN A1Con 2021 ADA RECOMMENDATION SEE BELOW Normal [facility] Comment on above: Result Comment: ADA RECOMMENDED LIMIT 4.0 - 6.0 ADA THERAPEUTIC TARGET < 7.0 ACTION SUGGESTED > 7.0 Performed By: #### A 1C #### [facility] [address] [place] [address] Dr. Zachary Roque Glucose [Mass/Vol] 108 mg/dL Normal [facility] Comment on above: Performed By: #### A 1C #### [facility] [address] [place] [address] Dr. Zachary Roque HbA1c (Bld) [Mass fraction] 5.4 % Normal 4.5-6.2 [facility] Comment on above: Performed By: #### A 1C #### [facility] [address] [place] [address] Dr. Zachary Roque LIPID PROFILEon 09-07-2021 CHOL-HDL RATIO NORM SEE BELOW Normal [facility] Comment on above: Result Comment: 3.3 - 4.4 LOW RISK 4.4 - 7.1 AVERAGE RISK 7.1 - 11.0 MODERATE RISK >11.0 HIGH RISK Performed By: #### T SH, LIPID, CMP #### [facility] [address] [address] [address] Zachary Roque Cholesterol [Mass/Vol] 145 mg/dL Normal <=200 [facility] Comment on above: Performed By: #### T SH, LIPID, CMP #### [facility] [address] [address] [address] Zachary Roque Cholesterol in HDL [Mass/Vol] 41 mg/dL Normal 40-60 [facility] Comment on above: Performed By: #### T SH, LIPID, CMP #### [facility] [address] [address] [address] Zachary Roque Cholesterol in LDL [Mass/Vol] 83.4 mg/dL Normal [facility] Comment on above: Performed By: #### T SH, LIPID, CMP #### [facility] [address] [address] [address] Zachary Roque Cholesterol.total/Ch olesterol in HDL [Mass ratio] 3.5 {ratio} Normal [facility] Comment on above: Performed By: #### T SH, LIPID, CMP #### [facility] [address] [address] [address] Zachary Roque HDL NORMAL > or = 60 mg/dl - LOW CARDIOVASCULAR RISK <40 mg/dl - HIGH CARDIOVASCULAR RISK Normal [facility] Comment on above: Performed By: #### T SH, LIPID, CMP #### [facility] [address] [address] [address] Zachary Roque LDL CALC NORMAL SEE BELOW Normal [facility] Comment on above: Result Comment: <100 mg/dl OPTIMAL 100 - 129 mg/dl NEAR OR ABOVE OPTIMAL 130 - 159 mg/dl BORDERLINE HIGH 160 - 189 mg/dl HIGH >190 mg/dl VERY HIGH Performed By: #### T SH, LIPID, CMP #### [facility] [address] [address] [address] Zachary Roque Triglyceride [Mass/Vol] 103 mg/dL Normal <=150 [facility] Comment on above: Performed By: #### T SH, LIPID, CMP #### [facility] [address] [address] [address] Zachary Roque VLDL CALC 20.6 mg/dL Normal [facility] Comment on above: Performed By: #### T SH, LIPID, CMP #### [facility] [address] [address] [address] Zachary Roque PROF 14(COMP METB)on 022 Albumin [Mass/Vol] 3.7 g/dL Normal 3.4-5.0 [facility] Comment on above: Performed By: #### T SH, LIPID, CMP #### [facility] [address] [address] [address] Zachary Roque Albumin/Globulin [Mass ratio] 1.1 {ratio} Normal [facility] Comment on above: Performed By: #### T SH, LIPID, CMP #### [facility] [address] [place] [address] Dr. Zachary Roque ALP [Catalytic activity/Vol] 79 U/L Normal 46-116 [facility] Comment on above: Performed By: #### T SH, LIPID, CMP #### [facility] [address] [place] [address] Dr. Zachary Roque ALT [Catalytic activity/Vol] 22 U/L Normal 14-59 [facility] Comment on above: Performed By: #### T SH, LIPID, CMP #### [facility] [address] [place] [address] Dr. Zachary Rqoue Anion gap [Moles/Vol] 10.7 mmol/L Normal [facility] Comment on above: Performed By: #### T SH, LIPID, CMP #### [facility] [address] [place] [address] Dr. Zachary Roque AST [Catalytic activity/Vol] 11 U/L Critically low 15-37 [facility] Comment on above: Performed By: #### T SH, LIPID, CMP #### [facility] [address] [place] [address] Dr. Zachary Roque Bilirubin [Mass/Vol] 0.6 mg/dL Normal 0.2-1.0 [facility] Comment on above: Performed By: #### T SH, LIPID, CMP #### [facility] [address] [address] [address] Zachary Roque Calcium [Mass/Vol] 9.0 mg/dL Normal 8.5-10.[address] [facility] Comment on above: Performed By: #### T SH, LIPID, CMP #### [facility] [address] [place] [address] Dr. Zachary Roque Chloride [Moles/Vol] 103 mmol/L Normal 98-[address] [facility] Comment on above: Performed By: #### T SH, LIPID, CMP #### [facility] [address] [place] [address] Dr. Zachary Roque CO2 [Moles/Vol] 25.8 mmol/L Normal 21.0-32.0 [facility] Comment on above: Performed By: #### T SH, LIPID, CMP #### [facility] [address] [place] [address] Dr. Zachary Roque Creatinine [Mass/Vol] 0.81 mg/dL Normal 0.55-1.02 [facility] Comment on above: Performed By: #### T SH, LIPID, CMP #### [facility] [address] [place] [address] Dr. Zachary Roque EGFR-AF TURKMEN >60 Normal >=60 [facility] Comment on above: Performed By: #### T SH, LIPID, CMP #### [facility] [address] [place] [address] Dr. Zachary Roque EGFR-NON AF TURKMEN >60 Normal >=[address] [facility] Comment on above: Performed By: #### T SH, LIPID, CMP #### [facility] [address] [place] [address] Dr. Zachary Roque Globulin (S) [Mass/Vol] 3.4 g/dL Normal [facility] Comment on above: Performed By: #### T SH, LIPID, CMP #### [facility] [address] [place] [address] Dr. Zachary Roque Glucose [Mass/Vol] 96 mg/dL Normal 74-[address] [facility] Comment on above: Performed By: #### T SH, LIPID, CMP #### [facility] [address] [place] [address] Dr. Zachary Roque Potassium [Moles/Vol] 4.5 mmol/L Normal 3.5-5.1 [facility] Comment on above: Performed By: #### T SH, LIPID, CMP #### [facility] [address] [place] [address] Dr. Zachary Roque Protein [Mass/Vol] 7.1 g/dL Normal 6.4-8.2 [facility] Comment on above: Performed By: #### T SH, LIPID, CMP #### [facility] [address] [place] [address] Dr. Zachary Roque Sodium [Moles/Vol] 135 mmol/L Critically low 136-145 [facility] Comment on above: Performed By: #### T DANISH, LIPID, CMP #### [facility] [address] [place] [address] Dr. Zachary Roque Urea nitrogen [Mass/Vol] 13.0 mg/dL Normal 7.0-18.0 [facility] Comment on above: Performed By: #### T DANISH, LIPID, CMP #### [facility] [address] [place] [address] Dr. Zachary Roque Urea nitrogen/Creatinine [Mass ratio] 16.0 mg/mg Normal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
--- NOTE | 2024-09-02 12:17 | ED.GENADUL1 ---
HPI HPI - General Adult General Chief complaint: Extremity Injury, Upper Stated complaint: FALL R SHOULDER PAIN Time Seen by Provider: 09/02/24 11:52 Source: patient Mode of arrival: walk-in Limitations: no limitations History of Present Illness HPI narrative: Patient is a 23-year-old female who is presenting to the ER today with chief complaint of a fall in the shower. Patient has slipped and fall. Patient hit the right side of her head. Patient has a small 0.75 cm laceration to the lateral to the right eyebrow. It is superficial, approximately 1 mm deep. Patient does have some ecchymosis and mild swelling to the lateral right upper eyelid. Patient also is having right shoulder pain. Patient is concern for dislocation of the right shoulder. Patient is right-hand dominant. She is currently not working. She has no headache. Patient does have some right cervical pain. Patient was given ice for her right eye. No loss of consciousness. No blood thinners. No other acute complaints. All systems are negative except as noted/marked. All systems reviewed and otherwise negative. Nurses note and vital signs reviewed and patient is not hypoxic. General: The patient appears well and in no apparent distress. Patient is resting comfortably on cart. Patient is not toxic, lethargic, or listless Skin: Warm, dry, no pallor noted. There is no rash noted. No petechiae, purpura. Head: Normocephalic, patient has no midline tenderness to palpation to cervical spine. She has no left paracervical tenderness to palpation. Patient does have right upper paracervical tenderness to palpation, C1-C3, no redness, no rash. No ecchymosis laceration or signs of trauma to the neck. No scalp hematoma. Eye: Normal conjunctiva, no drainage, EOMI. PERRL Ears, Nose, Mouth, and Throat: oral mucosa is moist. Nares patent. Mouth without vesicles. Cardiovascular: Regular Rate and Rhythm, no murmur, gallop, rub Respiratory: Patient is in no distress, no accessory muscle use, lungs are clear to auscultation, no wheezing, rales or rhonchi Back: non-tender, no CVA tenderness bilaterally to percussion. No CT LS midline pain GI: no tenderness to palpation, no masses appreciated. No rebound, guarding, or rigidity noted. No distention Musculoskeletal: Patient has full range of motion of all of the extremities except to the right shoulder. Patient does have mild to moderate tenderness to palpation to the right AC joint. Patient does have mild pain with flexion extension of the right shoulder, she has moderate pain with abduction to 45 degrees of the right shoulder. She has no bruising or ecchymosis noted to the right shoulder. Patient has mild to moderate tenderness palpation to the superior portion of the right shoulder. No bony tenderness to the right scapula. No midline thoracic lumbar sacral tenderness, no other signs of ecchymosis or bruising to the back. No other acute complaints. Patient not nauseous. Patient states she is not . Her last menses was August 25. No motor, sensory, or focal neurological deficits Neurological: A&O x4, normal speech Psychiatric: Cooperative Related Data Previous Rx's ?Medication ?Instructions ?Recorded hydrocodone 5 mg-acetaminophen 325 1 tab PO Q8H #9 tabs 04/05/24 mg tablet amoxicillin 500 mg capsule 500 mg PO TID 10 days #30 caps 06/08/24 doxycycline hyclate 100 mg tablet 100 mg PO BID 10 days #20 tabs 06/08/24 ketorolac 10 mg tablet 10 mg PO TID PRN pain #10 tabs 06/08/24 ondansetron 4 mg disintegrating 4 mg PO Q6H PRN nausea and 06/08/24 tablet vomiting #12 tabs Allergies Allergy/AdvReac Type Severity Reaction Status Date / Time No Known Drug Allergies Allergy Verified 04/05/24 20:43 Opioid HPI Opioid Management Most Recent Opioid Data: Last Pain Scale 2 Today, 11:39 Last ED Pain Assessment Today, 11:39 PFSH PFSH Social History Little interest or pleasure in doing things: not at all Feeling down, depressed, or hopeless: not at all Exam Constitutional Vital Signs, click to edit/add: Last Vital Signs Temp 98.4 F 09/02/24 10:35 Pulse 70 09/02/24 10:35 Resp 16 09/02/24 10:35 BP 111/78 09/02/24 10:35 Pulse Ox 98 09/02/24 10:35 O2 Del Method Room Air 09/02/24 10:35 Course Vital Signs Vital signs: Vital Signs Temperature 98.4 F 09/02/24 10:35 Pulse Rate 70 09/02/24 10:35 Respiratory Rate 16 09/02/24 10:35 Blood Pressure 111/78 09/02/24 10:35 Pulse Oximetry 98 09/02/24 10:35 Oxygen Delivery Method Room Air 09/02/24 10:35 Temperature 98.4 F 09/02/24 10:35 Pulse Rate 70 09/02/24 10:35 Respiratory Rate 16 09/02/24 10:35 Blood Pressure 111/78 09/02/24 10:35 Pulse Oximetry 98 09/02/24 10:35 Oxygen Delivery Method Room Air 09/02/24 10:35 Medical Decision Making MDM Narrative Medical decision making narrative: Patient seen and examined: Patient had x-ray of her right shoulder, ice applied. Differential diagnosis includes but is not limited to: Right shoulder fracture, right shoulder dislocation, facial laceration, right shoulder sprain, closed head injury, Radiological studies: Please see the formal radiological report. Right shoulder x-ray shows no acute fracture dislocation or acute abnormality. Reevaluation: Patient right eye feels better after ice applied. Shared decision making: I discussed with the patient the necessary radiological findings. Social barriers to healthcare: There are no food insecurities, there is no issue with transportation, there are no insurance barriers. Disposition: I discussed with the patient testing. Patient has no headache, no loss of consciousness, no nausea vomiting. No acute CT of the head indicated at this time. Patient has right-sided paracervical soft tissue pain, no midline or pain over transverse process of cervical spine, no CT or x-ray indicated at this time. Patient does have full range of motion of cervical spine with mild pain to the right paracervical soft tissue. Right shoulder x-ray shows no acute fracture dislocation or acute abnormality. Patient was placed in a right shoulder sling. Patient did not want laceration repair. Patient wanted benzoin and Steri-Strip. Patient understands recommendation that placing 1 or 2 stitches would be the best treatment for her facial laceration. It is superficial. Patient does not want stitches, she agrees with benzoin and Steri-Strip. No Dermabond indicated. Education close head injury, right shoulder pain given. Patient understands alternate Tylenol Motrin for pain. Patient understands importance of using ice to all areas of pain. Patient return back to the ER if any other significant acute complaints. Patient understands this, no question at discharge Discharge Plan Discharge Chief Complaint: Extremity Injury, Upper Clinical Impression: Acute pain of right shoulder, Pain in right acromioclavicular joint, CHI (closed head injury), Laceration of face, Fall Patient Disposition: Home, Self-Care Time of Disposition Decision: 12:09 Condition: Fair Prescriptions / Home Meds: No Action hydrocodone-acetaminophen 5-325 mg tablet 1 tab PO Q8H Qty: 9 0RF amoxicillin 500 mg capsule 500 mg PO TID 10 Days Qty: 30 0RF ketorolac 10 mg tablet 10 mg PO TID PRN (Reason: pain) Qty: 10 0RF ondansetron 4 mg tablet,disintegrating 4 mg PO Q6H PRN (Reason: nausea and vomiting) Qty: 12 0RF doxycycline hyclate 100 mg tablet 100 mg PO BID 10 Days Qty: 20 0RF Print Language: [place] Instructions: How to Use a Sling (ED), Head Injury (ED), P.R.I.C.E. Treatment (ED), Shoulder Pain (ED), Facial Laceration (ED) Additional Instructions: Close head injury instructions were given to you for educational purposes only. Your Steri-Strip will fall off in 5 to 7 days. You may take a shower, did not have your head soaked underneath water until your laceration has healed. Alternate Tylenol and either Motrin, Advil, or ibuprofen every 4 hours to help with pain. Maximum dose of Tylenol is 3000 mg a day. Maximum dose of either Motrin, Advil, or ibuprofen is 2400 mg a day. Use ice 20 minutes on, 20 minutes off, do not use heat. Use ice for the next 1 to 2 weeks. Only use your shoulder sling for 3 to 5 days, then start doing shoulder exercises as shown at bedside and on discharge paperwork Referrals: Physician,Non-Staff, [Primary Care Provider] - 1 week Kristian Jaquez MD [Physician] - 1 week
== END 2024-09-02 12:53 | disposition home or self-care (01) ==
PROVIDERS: Emergency Provider Emergency Medicine
DX: M25.511 Pain in right shoulder (principal); S06.0X0A Concussion without loss of consciousness, initial encounter; S01.111A Laceration without foreign body of right eyelid and periocular area, initial encounter; W18.2XXA Fall in (into) shower or empty bathtub, initial encounter; M54.2 Cervicalgia
CPT/HCPCS: 73030; 99283

== ENCOUNTER 2025-02-01 14:44 | Outpatient (REF) | payer MEDICAID, SELFPAY ==
--- OUTSIDE RECORDS SUMMARY | 2025-02-01 14:52 | XMS_ITS | CCD ---
Author Organization [facility] Care Team Providers Care Paint Department Supervisor Name Role Phone Lauren Castaneda Unavailable DION ., TAMMI Admitting Unavailable DION ., TAMMI Consulting Unavailable DION Cortes, TAMMI Attending Unavailable FAWLAKISHA, RODRIGUEZ H Primary Care Unavailable FAWWAD, RODRIGUEZ H Primary Care Unavailable ZO .AAYUSH Consulting Unavaillaurie e DION ., TAMMI Admitting [...] Unavailable Linda Reyes Unavailable Sariah Kim Unavailable UnallocatEsdrsa suero MD Provider Primary Care Provi luis NOBLE CAN Attending Unavailable NOBLE CAN Attending Unavailable Anup Gleason Attending Unavailab Anup Melgar Admitting Unavailab le Shaikh Hernandez Primary Care Unavailable Shaikh Hernandez MD Primary Care Provider Medications Current Medications MedicationDrug Class(es)DatesSig (Normalized)Sig (Original)dextromethorphan hydrobromide 15 mg / guaiFENesin 400 mg / pseudoephedrine hydrochloride 60 mg oraltablet (1 source)alpha-Adrenergic Agonist, Uncompetitive X-aulpui-Z-aspartate Receptor Antagonist, Sigma-1 AgonistStart: 69-63-0524ibmg 4 tablets by mouth every twenty-four hours as neededCapmist DM 60-15-400 MG as needed Orally every 4-6 hours as needed, max 4 tablets in 24 hours for 5days Feb, Active escitalopram 20 mg oral tablet (6 sources)Serotonin Reuptake InhibitorStart: 35-61-6260cwdg 1 tablet by mouth once dailyescitalopram (Lexapro) 20 MG tablet Indications: Anxiety Take 1 tablet (20 mg) by mouth Daily 30 tablet 5 08/20/2024 Activelevonorgestrel 0.329105 mg/hr intrauterine system (8 sources)Progestin, Progestin-containing Intrauterine DeviceLevonorgestrel (Mirena, 52 MG,) 20 MCG/DAY intrauterine device as directed Intrauterine Active Penicillin (1 source)Start: 73-86-8795luxi 1 tablet by mouth four times dailyPenicillin VK 500mg 500mg 1 tab(s) Oral 4 times a day for 10 days Oct, Active Completed/Discontinued Medications MedicationDrug Class(es)DatesSig (Normalized)Sig (Original)amoxicillin 875 mg oral tablet (2 sources)Penicillin-class AntibacterialStart: 34-51-8197ilzn 1 tablet by mouth every twelve hoursAmoxicillin 875 MG 1 tablet Orally every 12 hrs for 7 days Feb, Not-TakingcefTRIAXone (3 sources)Cephalosporin AntibacterialStart: 70-14-0306Omsdznjn 500 mg Apr, 500 mgKetorolac (3 sources)Nonsteroidal Anti-inflammatory Drug, Cyclooxygenase InhibitorStart: 53-33-3112Gaxvelq per 15 mg Apr, 30 mgSertraline (2 sources)Serotonin Reuptake InhibitorZoloft Not-TakingTriamcinolone (3 sources)CorticosteroidStart: 15-88-4224CBUXBOA - 10 mg Apr, 40 mg Problems Active Problems Problem ClassificationProblemDateDocumented DateEpisodic/ChronicAnxiety disorders (5 sources)Generalized anxiety disorder; Translations: [Anxiety]Onset: [id number]x and procreative management (1 source)Presence of (intrauterine) contraceptive device; Translations: [PRESENCE IU CONTRACEPT DEVICE]Onset: 61-98-6173LxmarjvxQaciwzaef of teeth and jaw (1 source)Dental caries, unspecifiedEpisodicGenitourinary symptoms and ill- defined conditions (4 sources)Dysuria; Translations: [Personal history of urinary (tract) infections]Onset: 83-44-2768FqcgmygqWvinuagqffsf diseases of female pelvic organs (1 source)Inflammatory disease of cervix uteri; Translations: [INFLAMMATORY DISEASE CERVIX UTERI]Onset: 52-47-0229FzswxvmfIamh disorders (4 sources)Bipolar disorder, unspecified; Translations: [BIPOLAR DISORDER UNSPECIFIED]Onset: 37-32-3909UoltzdtZkzgq upper respiratory infections (5 sources)Acute pharyngitis, unspecified; Translations: [Streptococcal pharyngitis]EpisodicSprains and strains (2 sources)Shoulder strain; Translations: [Strain of unspecified muscle, fascia and tendon at shoulder and upper arm level, right arm, initial encounter] 41-65-3343VldulspjClaahrjhr-related disorders (1 source)Nicotine dependence, cigarettes, uncomplicated; Translations: [NICOTINE DEPEND CIGARETTES UNCOMP]Onset: 58-72-3419WpipuhqVmsvlhbdeteh (2 sources)COUGH, UNSPECIFIED; Translations: [COUGH, UNSPECIFIED]Onset: 57-11-8762Mefzupqdfibk (1 source)CONTACT W/AND (SUSP) EXPOS COVID-19; Translations: [CONTACT W/AND (SUSP) EXPOS COVID-19]Onset: 02-15-2022 Past or Other Problems Problem ClassificationProblemDateDocumented DateEpisodic/ChronicE Codes: Natural/environment (1 source)Bitten or stung by nonvenomous insect and other nonvenomous arthropods, initial encounter; Translations: [BITTEN NONVENOM INSCT OTH ARTH INIT]Onset: 02-94-8717ValnbwulUcnepzbsk (1 source)Influenza due to other identified influenza virus with other respiratory manifestations; Translations: [FLU D/T OTH ID FLU VIR OTH RSP MANF] Onset: 82-05-0584EfslargkLbbhf screening for suspected conditions (not mental disorders or infectious disease) (2 sources)Encounter for screening for diabetes mellitus; Translations: [Encounter for screening for lipoid disorders]Onset: 97-93-1700KgjrswcmEfovv skin disorders (4 sources)Rash and other nonspecific skin eruption; Translations: [RASH OTH NONSPECIFIC SKIN ERUPTION]Onset: 53-99-5897SytthpbjRnvw and subcutaneous tissue infections (4 sources)Furuncle, unspecified; Translations: [FURUNCLE UNSPECIFIED]Onset: 50-70-9975PkypzijmCqpkuivwrlw injury; contusion (7 sources)Insect bite (nonvenomous) of left shoulder, initial encounter; Translations: [Insect bite (nonvenomous) of right shoulder, initial encounter] Onset: 34-83-3724WzqnfsrpOffhlbvtezkw (1 source)Contact with and (suspected) exposure to covid-19 Z20.822Unclassified (1 source)COUGH, UNSPECIFIED; Translations: [COUGH, UNSPECIFIED]Onset: 02-13-2022 Results Test NameValueInterpretationReference RangeFacilityCOVID/FLU RT-PCRon 03-02-2023 SARS-CoV-2 (COVID-19) RNA LOCO+probe Ql (Unsp spec)NegativeBlain [facility] Other COVID/FLU RT-PCRNegativeNotenet [place] [facility] Other Quick Strepon 03-02-2023S. pyogenes Org specific cx Ql (Throat)NegativeBlain [facility] Other Quick StrepNoAJ[address] Other CHLAMYDIA , NISSERIA, VAGINALIS NAAon 07-16-2022 Chlamydia by NAAWRGSWBNMagruder Memorial HospitalComment on above:Result Comment: Test not performed. Collection container received with incorrect swab or not in liquid medium. Sepcimen Required:Aptima swab with collection swab Apecimen Received:Aptima swab with cleaning swab Contacted Sariah Young at your facility on 07/16/2022 Performed at: =GPerformed By: #### CTVNGNA #### [facility] [address] [place] [address] Dr. Zachary Fer[address] [facility] on above: Result Comment: Test not performed Performed at: =GPerformed By: #### CTVNGNA #### [facility] [address] [place] [address] Dr. Zachary AjHolzer Health System on above:Result Comment: Performed at: CBPerformed By: #### CTVNGNA #### [facility] [address] [place] [address] Dr. [address]ie [address] [facility] on above: Result Comment: Test not performed Performed at: =GPerformed By: #### CTVNGNA #### [facility] [address] [place] [address] Dr. Zachary Pearson URINEon 93-69-7951YWXHFGD URINEIsolate 1 Escherichia coli >100,000 cfu/mL of ORGANISM 1 Escherichia coli ANTIBIOTIC M.I.C RX STATUS Ampicillin >=32 R F Ampicillin/Sulbactam >=32 R F Piperacillin/Tazobactam <=4 S F Cefazolin 8 R F Ceftazidime <=1 R F Ceftriaxone <=1 R F Ertapenem <=0.5 S F Imipenem <=0.25 S F Amikacin <=2 S F Gentamicin >=16 R F Tobramycin 8 I F Ciprofloxacin <=0.25 S F Levofloxacin <=0.12 S F Nitrofurantoin <=16 S F Trimethoprim/Sulfamethoxazole >=320 R FNormalSelect Medical Specialty Hospital [facility] SouthComhelen [facility] on above:Performed By: #### URCX #### [facility] [address] [place] [address] Dr. Zachary Encinas URINE PROFILEon 64-58-8957Okpeljfie Ql (U)NegativeNormal NEGATIVEKettering Health Springfield on above:Performed By: #### INFLUAB #### [facility] [address] [place] [address] Dr. Zachary Lundyarity (U)CLEARNormalCLEARThe Caldwell HospitalComment on above: Performed By: #### INFLUAB #### [facility] [address] [address] [address] Zachary Palumbo (U)LT. YELLOWNormalYELLOWSelect Medical Specialty Hospital [facility] SouthComhelen [facility] hospital on above:Performed By: #### INFLUAB #### [facility] [address] [place] [address] Dr. Zachary Blanco micrscopic examination will be performed if indicated. NormalThe Caldwell HospitalComment on above:Performed By: #### INFLUAB #### [facility] [address] [place] [address] Dr. Zachary RoqueGlucose Ql (U)NegativeNormalNEGATIVESelect Medical Specialty Hospital - [facility] SouthComment on above:Performed By: #### INFLUAB #### [facility] [address] [place] [address] Dr. Zachary RoqueHemoglobin Ql (U)TRACE-INTACTAbnormalNEGATIVESelect Medical Specialty Hospital [facility] SouthComment on above:Performed By: #### INFLUAB #### [facility] [address] [place] [address] Dr. Zachary Mayoones Ql (U)NegativeNormalNEGATIVESelect Medical Specialty [facility] SouthComment on above:Performed By: #### INFLUAB #### [facility] [address] [place] [address] Dr. Zachary SlaughterOCYTESSMALLAbnormalNEGATIVESelect Medical [facility] SouthComhelen [facility] on above:Performed By: #### INFLUAB #### [facility] [address] [place] [address] Dr. Zachary RoqueNitrite Ql (U)NegativeNormalNEGATIVESelect Medical Specialty [facility] SouthComment on above:Performed By: #### INFLUAB #### [facility] [address] [place] [address] Dr. Zachary RoquepH (U)5.5 [pH]Normal5-9[facility] SouthComment on above: Performed By: #### INFLUAB #### [facility] [address] [place] [address] Dr. Zachary RoqueSPEC GRAVITY>=1.727Ageepqzi9.005-<=1.025The [facility] Comment on above:Performed By: #### INFLUAB #### [facility] [address] [place] [address] Dr. Zachary Bowie PROTEINNegativeNormalNEGATIVE/ TRACEThe [facility] Comment on above:Performed By: #### INFLUAB #### [facility] [address] [address] [address] Zachary Amador MICRO INDINDICATEDNoMercy Health West HospitalComment on above: Performed By: #### INFLUAB #### [facility] [address] [place] [address] Dr. Zachary Guy Qn (U)0.2 {Erica'U}/dLNormal0.2 - 1.0The [facility] CenterComment on above:Performed By: #### INFLUAB #### [facility] [address] [place] [address] Dr. Zachary Sandhu URon 72-56-8462SCHHSJZDP, QUALNegativeNormalNEGATIVEThe [facility] CenterComment on above:Performed By: #### INFLUAB #### [facility] [address] [place] [address] Dr. Zachary Berg MICROSCOPIC ONLYon 78-90-9525BTCBMPPDRVOXXYyleiomhJVSY SEEN [facility]Comhelen [facility] on above:Performed By: #### INFLUAB #### [facility] [address] [place] [address] Dr. Zachary Zee identified Cx Nom (U)INDICATEDNoMercy Health West HospitalComment on above:Performed By: #### INFLUAB #### [facility] [address] [place] [address] Dr. Zachary Gonsalez SEENNormalNONE [facility] HealthcareComhel[facility] on above:Performed By: #### INFLUAB #### [facility] [address] [place] [address] Dr. Zachary Mullerystals LM Nom (Urine sed)NONE SEENCedar County Memorial HospitalalNONE SEENSelect Medical Specialty Hospital [facility] SouthComhelen [facility] on above:Performed By: #### INFLUAB #### [facility] [address] [address] [address] Sharma ChangEpithelial cells LM Ql (Urine sed)FEWAbnormalNONE SEEN /RAREThe [facility] CenterComhelen [facility] hospital on above:Performed By: #### INFLUAB #### [facility] [address] [address] [address] Zachary SantiagoACEAbnormalNONE SEENThe [facility] CenterComment on above:Performed By: #### INFLUAB #### [facility] [address] [address] [address] Zachary RoqueLdvnbGZS1-7Setknnjd4-3Bmw [facility] CenterComhelen [facility] on above:Performed By: #### INFLUAB #### [facility] [address] [address] [address] Zachary RoqueWBC5-10AbnormalNONE SEENThe [facility] CenterComment on above: Performed By: #### INFLUAB #### [facility] [address] [address] [address] Zachary RoqueCOVID/FLU/RSV RT-PCRon 62-42-4696ITXV-CoV-2 (COVID-19) RNA LOCO+probe Ql (Unsp spec)NegativeBlain [facility] Other COVID/FLU/RSV RT-PCRNegativeBlain [facility] Other Quick Strepon 03-12-2022. pyogenes Org specific cx Ql (Throat)PositiveBlain Picnic[facility] Other quick StrepAJAX Street Other CULTURE WOUNDon 79-33-7678XQVRQCC WOUNDIsolate 1 Enterococcus hirae Light growth of ORGANISM 1 Enterococcus hirae ANTIBIOTIC M.I.C RX STATUS Beta-Lactamase Neg NEG F Benzylpenicillin 0.25 S F Ampicillin <=2 S F Gentamicin High Level (synergy) SYN-S S F Streptomycin High Level (synergy) SYN-S S F Quinupristin/Dalfopristin 1 S F Linezolid 2 S F Vancomycin <=0.5 S FNormalSelect Medical Specialty Hospital - Columbus SouthComment on above:Performed By: #### WOUNDCX #### [facility] [address] [place] [address] Dr. Zachary RoqueCovid-19 PCR (CVDTB)on 38-39-8254SXGJ-CoV-2 (COVID-19) RNA LOCO+probe Ql (Unsp spec)Not detectedNormalNOT DETECTEDThe [facility] Comment on above:Result Comment: When diagnostic testing is negative, the [...] for this test is supported by the [place] of Health and Human Service's declaration that circumstances exist to justify the emergency use of in vitro diagnostics for the detection and/or diagnosis of the virus that causes COVID-19. This EUA will remain in effect for the duration of the COVID-19 declaration justifying emergency of IVDs, unless it is terminated or revoked by the FDA (after which the test may no longer be used).Performed By: #### CVDTBH #### [facility] [address] [place] [address] Dr. Zachary Mercado AND B AGon [id number] BELOWNormalThe [facility] CenterComment on above:Result Comment: Negative for Flu B protein antigen. Infection due to Flu B cannot be ruled out. FluB antigen in the sample may be below the detection limit of the test.Performed By: #### INFLUAB #### [facility] [address] [place] [address] Dr. Zachary Mercado AGPositiveAbnormalNEGATIVE SEE COMMENTSelect Medical Specialty Hospital - [facility] SouthComment on above:Performed By: #### INFLUAB #### [facility] [address] [place] [address] Dr. Yilan ChangINFLUENZA B AGNegativeNormalNEGATIVE SEE COMMENTThe [facility] on above:Performed By: #### INFLUAB #### [facility] [address] [place] [address] Dr. Zachary RoqueINFLUPOSHSEE Sum[facility] Health [facility]ron Campusment on above: Result Comment: NOTE: Live attenuated influenzae vaccine viruses can cause a positive result for a rapid influenza diagnostic test if administered up to 7 days prior to rapid testing.Performed By: #### INFLUAB #### [facility] [address] [place] [address] Dr. Zachary RoqueINTERNAL CONTROLSWithin Normal LimitsNormalWithin Normal Limits The [facility] CenterComhelen [facility] on above:Performed By: #### INFLUAB #### [facility] [address] [place] [address] Dr. Zachary Seymour AUTO DIFFon 36-60-1571WLAY #0.0 103/ulNormal0.0-0.1The [facility] Medical Centerment on above:Performed By: #### CBC #### [facility] [address] [place] [address] Dr. Zachary RoqueBasophils/100 WBC (Bld)0.5 %Normal0.2-2.0[facility] Comment on above:Performed By: #### CBC #### [facility] [address] [place] [address] Dr. Zachary Walsh #0.1 103/ulNormal0.0-0.7The [facility] Medical Centerment on above: Performed By: #### CBC #### [facility] [address] [place] [address] Dr. Zachary Davisosinophils/100 WBC (Bld)0.9 %Normal0.9-7.0[facility] Comment on above:Performed By: #### CBC #### [facility] [address] [place] [address] Dr. Zachary Davisrythrocyte distribution width (RBC) [Ratio]13.3 %Vsqyjh27.0-15.0 The [facility] CenterComment on above:Performed By: #### CBC #### [facility] [address] [address] [address] Zachary RoqueHematocrit (Bld) [Volume fraction]42.5 %Xxrqqj72.0-48.0The [facility] CenterComment on above:Performed By: #### CBC #### [facility] [address] [place] [address] Dr. Zachary RoqueHemoglobin (Bld) [Mass/Vol]13.7 g/kLOsxfvu60.0-16.0The [facility] HospitalComment on above:Performed By: #### CBC #### [facility] [address] [place] [address] Dr. Zachary Katz #0.06 10e3/ulCritically high0.00-0.03The [facility] Comment on above:Performed By: #### CBC #### [facility] [address] [place] [address] Dr. Zachary Katz %0.8 %Critically high0.0-0.5The [facility] CenterComment on above:Performed By: #### CBC #### [facility] [address] [place] [address] Dr. Zachary Navarrete #1.9 103/ulNormal1.2-3.8The [facility] CenterComment on above:Performed By: #### CBC #### [facility] [address] [place] [address] Dr. Zachary Connollyhocytes/100 WBC (Bld)24.2 %Aefihc11.5-60.0The [facility] HospitalComment on above:Performed By: #### CBC #### [facility] [address] [place] [address] Dr. Zachary ErvinUAL DIFF REQNONormalThe [facility] CenterComment on above: Performed By: #### CBC #### [facility] [address] [place] [address] Dr. Zachary Boyce (RBC) [Entitic mass]29.2 fmXalbik95.7-34.0The [facility] HospitalComment on above:Performed By: #### CBC #### [facility] [address] [address] [address] Zachary SerranoHC (RBC) [Mass/Vol]32.2 g/vVAbuhku62.9-35.2The [facility] CenterComment on above:Performed By: #### CBC #### [facility] [address] [address] [address] Zachary SerranoV (RBC) [Entitic vol]90.6 dIVcjwko34.0-99.0The [facility] CenterComment on above:Performed By: #### CBC #### [facility] [address] [place] [address] Dr. Zachary Harris #0.5 103/ulNormal0.3-0.8The [facility] CenterComment on above:Performed By: #### CBC #### [facility] [address] [place] [address] Dr. Zachary Salehocytes/100 WBC (Bld)6.7 %Normal1.7-12.0The [facility] Comment on above:Performed By: #### CBC #### [facility] [address] [address] [address] Zachary Sánchez #5.3 103/ulNormal1.4-6.5The [facility] CenterComment on above:Performed By: #### CBC #### [facility] [address] [address] [address] Zachary Castroutrophils/100 WBC (Bld)66.9 %Qymcur17.0-75.0The [facility] CenterComment on above:Performed By: #### CBC #### [facility] [address] [address] [address] Zachary Ocampolet mean volume (Bld) [Entitic vol]9.7 fLNormal9.5-13.5The [facility] CenterComment on above:Performed By: #### CBC #### [facility] [address] [address] [address] Zachary RoquePLT327 103/wzCaekky282-701TbuKettering Health Springfield on above: Performed By: #### CBC #### [facility] [address] [address] [address] Zachary RoqueRBC4.69 106/ulNormal4.20-5.40The [facility] CenterComhelen [facility] on above:Performed By: #### CBC #### [facility] [address] [address] [address] Zachary RoqueWBC7.9 103/ulNormal4.0-11.0The [facility] CenterComhelen [facility] on above: Performed By: #### CBC #### [facility] [address] [address] [address] Zachary RoqueGLYCOHEMOGLOBIN A1Con 82-47-6942PKU RECOMMENDATIONSEE BELOWKindred Hospital DaytonComhelen newberry [facility] hospital on above:Result Comment: ADA RECOMMENDED LIMIT 4.0 - 6.0 ADA THERAPEUTIC TARGET < 7.0 ACTION SUGGESTED > 7.0Performed By: #### A1C #### [facility] [address] [place] [address] Dr. Zachary RoqueGlucose [Mass/Vol]108 mg/dLNoMagruder Hospital on above:Performed By: #### A1C #### [facility] [address] [address] [address] Zachary RoqueHbA1c (Bld) [Mass fraction]5.4 %Normal4.5-6.2[facility] on above:Performed By: #### A1C #### [facility] [address] [address] [address] Zachary RoqueLIPID PROFILEon 18-20-7669TZWI-HDL RATIO NORMSEE [facility] on above:Result Comment: 3.3 - 4.4 LOW RISK 4.4 - 7.1 AVERAGE RISK 7.1 - 11.0 MODERATE RISK >11.0 HIGH RISKPerformed By: #### TSH, LIPID, CMP #### [facility] [address] [place] [address] Dr. Zachary RoqueCholesterol [Mass/Vol]145 mg/dLNormal<=200The [facility] Comment on above:Performed By: #### TSH, LIPID, CMP #### [facility] [address] [address] [address] Zachary Woodesterol in HDL [Mass/Vol]41 mg/qVJbslto40-40TojSelect Medical Specialty Hospital - [facility] SouthComment on above:Performed By: #### TSH, LIPID, CMP #### [facility] [address] [address] [address] Zachary Woodesterol in LDL [Mass/Vol]83.4 mg/dLNoMercy Health West HospitalComment on above:Performed By: #### TSH, LIPID, CMP #### [facility] [address] [address] [address] Zachary Henderson.total/Cholesterol in HDL [Mass ratio]3.5 {ratio} NormalSelect Medical Specialty Hospital - Columbus SouthComment on above:Performed By: #### TSH, LIPID, CMP #### [facility] [address] [address] [address] Zachary Kaufman NORMAL> or = 60 mg/dl - LOW CARDIOVASCULAR RISK <40 mg/dl - HIGH CARDIOVASCULAR RISKSelect Medical Specialty Hospital - AkronComment on above:Performed By: #### TSH, LIPID, CMP #### [facility] [address] [address] [address] Zachary Kendall CALC NORMALSEE BELOWSelect Medical Specialty Hospital - AkronComment on above:Result Comment: <100 mg/dl OPTIMAL 100 - 129 mg/dl NEAR OR ABOVE OPTIMAL 130 - 159 mg/dl BORDERLINE HIGH 160 - 189 mg/dl HIGH >190 mg/dl VERY HIGH Performed By: #### TSH, LIPID, CMP #### [facility] [address] [address] [address] Zachary RoqueTriglyceride [Mass/Vol]103 mg/dLNormal<=150[facility] Comment on above:Performed By: #### TSH, LIPID, CMP #### [facility] [address] [address] [address] Zachary OchoaLDL CALC20.6 mg/dLNoMercy Health West HospitalComment on above: Performed By: #### TSH, LIPID, CMP #### [facility] [address] [place] [address] Dr. Zachary Min 14(COMP METB)on 97-44-2592Kojokgo [Mass/Vol]3.7 g/dLNormal 3.4-5.0The [facility] CenterComment on above:Performed By: #### TSH, LIPID, CMP #### [facility] [address] [place] [address] Dr. Zachary RoqueAlbumin/Globulin [Mass ratio]1.1 {ratio}NormalThe [facility] CenterComment on above:Performed By: #### TSH, LIPID, CMP #### [facility] [address] [place] [address] Dr. Zachary Reynolds [Catalytic activity/Vol]79 U/CBolrnd29-407Lny [facility] CenterComment on above:Performed By: #### TSH, LIPID, CMP #### [facility] [address] [place] [address] Dr. Zachary Gonzalez [Catalytic activity/Vol]22 U/PRcgtlq42-26Clu [facility] CenterComment on above:Performed By: #### TSH, LIPID, CMP #### [facility] [address] [place] [address] Dr. Zachary Good gap [Moles/Vol]10.7 mmol/LNormalThe [facility] Comment on above:Performed By: #### TSH, LIPID, CMP #### [facility] [address] [place] [address] Dr. Zachary Paulino [Catalytic activity/Vol]11 U/LCritically wzy78-27Uuc [facility] CenterComment on above:Performed By: #### TSH, LIPID, CMP #### [facility] [address] [place] [address] Dr. Zachary Negreteirubin [Mass/Vol]0.6 mg/dLNormal0.2-1.0The [facility] Comment on above:Performed By: #### TSH, LIPID, CMP #### [facility] [address] [place] [address] Dr. Yilan ChangCalcium [Mass/Vol]9.0 mg/dLNormal8.5-10.1The [facility] Comment on above:Performed By: #### TSH, LIPID, CMP #### [facility] [address] [place] [address] Dr. Zachary RoqueChloride [Moles/Vol]103 mmol/BSuyair41-585Bhr [facility] Comment on above:Performed By: #### TSH, LIPID, CMP #### [facility] [address] [place] [address] Dr. Zachary RoqueCO2 [Moles/Vol]25.8 mmol/XZvkzjw98.0-32.0The [facility] Comment on above:Performed By: #### TSH, LIPID, CMP #### [facility] [address] [place] [address] Dr. Zachary RoqueCreatinine [Mass/Vol]0.81 mg/dLNormal0.55-1.02The [facility] CenterComment on above:Performed By: #### TSH, LIPID, CMP #### [facility] [address] [place] [address] Dr. Zachary DavisGFR-AF INDIAN>60Normal>=60The [facility] CenterComment on above:Performed By: #### TSH, LIPID, CMP #### [facility] [address] [place] [address] Dr. Zachary DavisGFR-NON AF INDIAN>60Normal>=60The [facility] CenterComment on above:Performed By: #### TSH, LIPID, CMP #### [facility] [address] [place] [address] Dr. Zachary RoqueGlobulin (S) [Mass/Vol]3.4 g/dLNormalThe [facility] CenterComment on above:Performed By: #### TSH, LIPID, CMP #### [facility] [address] [place] [address] Dr. Zachary RoqueGlucose [Mass/Vol]96 mg/aRWslqqf58-312Euf [facility] Comment on above:Performed By: #### TSH, LIPID, CMP #### [facility] [address] [address] [address] Zachary RoquePotassium [Moles/Vol]4.5 mmol/LNormal3.5-5.1The [facility] Comment on above:Performed By: #### TSH, LIPID, CMP #### [facility] [address] [place] [address] Dr. Zachary RoqueProtein [Mass/Vol]7.1 g/dLNormal6.4-8.2The [facility] Comment on above:Performed By: #### TSH, LIPID, CMP #### [facility] [address] [place] [address] Dr. Zachary RoqueSodium [Moles/Vol]135 mmol/LCritically uag490-908Uha [facility] CenterComment on above:Performed By: #### TSH, LIPID, CMP #### [facility] [address] [place] [address] Dr. Zachary RoqueUrea nitrogen [Mass/Vol]13.0 mg/dLNormal7.0-18.0The [facility] CenterComment on above:Performed By: #### TSH, LIPID, CMP #### [facility] [address] [place] [address] Dr. Zachary Motta nitrogen/Creatinine [Mass ratio]16.0 mg/mgNormalThe [facility] CenterComment on above:Performed By: #### TSH, LIPID, CMP #### [facility] [address] [place]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
[2025-02-03 11:08] LABS: Age Gdln ACOG Testing Note (.); IGP, rfx Aptima HPV ASCU Note (.)
== END 2025-02-01 14:45 | disposition home or self-care (01) ==
LOC: LAB 14:44
PROVIDERS: Visit Provider Physician Assistant
DX: Z01.419 Encounter for gynecological examination (general) (routine) without abnormal findings (principal)
CPT/HCPCS: 88175